=== PATIENT | female | born 1945 | race Caucasian/White ===

== ENCOUNTER 2020-08-12 10:30 | Outpatient (REF) | payer MEDICARE, SELFPAY ==
--- NOTE | ~2020-08-12 | XR_ITS ---
EXAMINATION: XR LUMBOSACRAL SPINE CLINICAL INFORMATION: Low back pain. COMPARISON: Radiographs lumbosacral spine 01/08/2019. CT chest screening 10/23/2018, 10/14/2017. TECHNIQUE: Three views of the lumbosacral spine. FINDINGS: There is normal lumbar segmentation with 5 [id number] lumbar vertebrae of normal height and normal lumbar lordosis. There is no lumbar vertebral compression, spondylolisthesis, or destructive process. Again, there are multilevel disc changes, greatest at L4-L5 and L1-L2 with disc narrowing and endplate sclerosis and vertebral spurring. Similar changes also noted at the other levels as before. There is facet degeneration greatest at L4 through S1. The SI joints and visualized sacrum are unremarkable. There are 2 calculi again seen overlying the right abdomen, 1.3 cm and 1.2 cm, respectively. These are not visible on the lateral view, therefore anterior in position and likely gallstones rather than renal calculi as previously suggested. XR/XR lumbar spine 2-3V IMPRESSION: 1. Multilevel degenerative disc and degenerative facet changes. 2. No lumbar vertebral compression, spondylolisthesis, or destructive process. 3. Probable gallstones.
--- NOTE | ~2020-08-12 | CT_ITS ---
EXAMINATION: CT CHEST SCREENING CLINICAL INFORMATION: Lung cancer screening COMPARISON: Previous chest CT scans most recent September 2018 TECHNIQUE: Multidetector volumetric CT imaging of the chest is performed without contrast using low dose technique. Additional 2D coronal and sagittal reformatted images and axial 3D maximum intensity projection (MIP) images are generated on the CT workstation. This CT examination was performed using dose optimization techniques as appropriate, variously including the following: *Automated exposure control *Adjustment of mA and/or kV according to patient size (this includes techniques or standardized protocols for targeted exams where dose is matched to indication/reason for exam; i.e. extremities or head) *Use of iterative reconstruction technique DLP: 56 mGy-cm FINDINGS: LUNGS: There are small 2 mm lateral right upper lobe nodules for example axial image 92 series 5 that are stable. There is a small peribronchial groundglass attenuation nodule in the right upper lobe axial image 182 series 5 that is stable. There are increased peripheral interstitial markings seen in the left anterior upper lobe probably related to previous chest wall radiation. There are scattered areas of mild bronchial wall thickening and bronchial soft tissue opacification. There are small cysts in the bilateral lower lobes that are stable. The lungs are otherwise clear. No endobronchial or endotracheal lesion. MEDIASTINUM: The heart does not appear enlarged. There is a small pericardial effusion that is unchanged. The thoracic aorta is normal in caliber. There is mild coronary artery calcification. There are no enlarged hilar or mediastinal lymph nodes.. PLEURA: There is no pleural effusion. No pleural mass or thickening. AXILLA: The left breast has been removed. There are surgical clips in the left axilla. No chest wall mass or enlarged axillary lymph nodes are seen. UPPER ABDOMEN: Unremarkable OSSEOUS STRUCTURES: There are degenerative changes of the spine. CT/CT lung screening IMPRESSION: Stable small pulmonary nodules. Scattered areas of mild bronchial wall thickening and soft tissue opacification suggestive of airways disease. Stable small pericardial effusion. ASSESSMENT: Lung-RADS category 2: Benign RECOMMENDATION: Annual low-dose chest CT follow-up recommended.
[2020-08-12 11:24] LABS: MANUAL DIFF FLAG NO
[2020-08-12 11:52] LABS: Basophils Absolute Auto 0.1 X10*3/uL (0.0-0.2); Basophils Percent Auto 1.4 % (0-2); Eosinophils Absolute Auto 0.2 X10*3/uL (0.0-0.4); Eosinophils Percent Auto 3.4 % (0-4); Hematocrit 41.6 % (37-47); Hemoglobin 13.3 g/dl (12.0-16.0); Imm Gran Abs Auto 0.02 X10*3/uL (0.00-0.03); Imm Gran Pct Auto 0.3 % (0.0-0.4); Lymphocytes Absolute Auto 1.7 X10*3/uL (1.2-4.9); Lymphocytes Percent Auto 25.9 % (20-40); Mean Corpuscular Volume 90.8 fL (80-98); Mean Platelet Volume 9.8 fL (9.4-12.3); Monocytes Absolute Auto 0.4 X10*3/uL (0.1-1.2); Monocytes Percent Auto 5.7 % (2-11); Neutrophils Absolute Auto 4.1 X10*3/uL (2.0-8.3); Neutrophils Percent Auto 63.3 % (45-73); Platelet Count 243 X10*3/uL (160-400); Red Blood Count 4.58 X10*6/uL (4.20-5.50); Red Cell Distribution Width 14.2 % (11.0-16.0); White Blood Count 6.5 X10*3/uL (4.8-10.8)
[2020-08-12 12:07] LABS: Thyroid Stimulating Hormone 1.15 uIU/mL (0.32-4.0)
[2020-08-12 12:09] LABS: Alanine Aminotransferase 13 U/L (0-31); Albumin Level 4.1 g/dL (3.5-5.0); Alkaline Phosphatase 58 U/L (39-117); Anion Gap 10 (12-20); Aspartate Amino Transferase 15 U/L (5-31); Bilirubin Total 0.3 mg/dL (0.0-1.0); Blood Urea Nitrogen 10 mg/dL (9-16); Calcium 9.2 mg/dL (8.4-10.2); Carbon Dioxide 29 mmol/L (22-29); Chloride 108 mmol/L (96-108); Estimated Glomerular Filt Rate > 60; Glucose Random 94 mg/dL (60-115); Potassium 4.4 mmol/L (3.3-5.1); Sodium 143 mmol/L (135-145); Total Protein 6.5 g/dL (6.5-8.0)
[2020-08-12 12:17] LABS: Erythrocyte Sedimentation Rate 8 MM/HR (0-20)
== END 2020-08-12 10:31 | disposition home or self-care (01) ==
LOC: HO.CT 10:30
PROVIDERS: Absent Provider Family Medicine; PCP Family Medicine; Visit Provider Physician Assistant Medical
DX: Z12.2 Encounter for screening for malignant neoplasm of respiratory organs (principal); F17.210 Nicotine dependence, cigarettes, uncomplicated; R53.83 Other fatigue; M54.5 Low back pain
CPT/HCPCS: 36415; 71271; 72100; 80053; 84443; 85025; 85652

== ENCOUNTER 2021-06-17 10:23 | Outpatient (REF) | payer MEDICARE, SELFPAY ==
[2021-06-17 13:25] LABS: MANUAL DIFF FLAG NO
[2021-06-17 13:34] LABS: Basophils Absolute Auto 0.1 X10*3/uL (0.0-0.2); Basophils Percent Auto 1.1 % (0-2); Eosinophils Absolute Auto 0.2 X10*3/uL (0.0-0.4); Eosinophils Percent Auto 3.7 % (0-4); Hematocrit 43.5 % (37.0-47.0); Hemoglobin 13.7 g/dl (12.0-16.0); Imm Gran Abs Auto 0.01 X10*3/uL (0.00-0.03); Imm Gran Pct Auto 0.2 % (0.0-0.4); Lymphocytes Absolute Auto 1.6 X10*3/uL (1.2-4.9); Lymphocytes Percent Auto 24.8 % (20-40); Mean Corpuscular HGB Conc 31.5 g/dl (31.0-35.0); Mean Corpuscular Hemoglobin 28.5 pg (27.0-33.0); Mean Corpuscular Volume 90.4 fL (80.0-98.0); Mean Platelet Volume 10.2 fL (9.4-12.3); Monocytes Absolute Auto 0.4 X10*3/uL (0.1-1.2); Monocytes Percent Auto 5.8 % (2-11); Neutrophils Absolute Auto 4.1 x10*3/uL (2.0-8.3); Neutrophils Percent Auto 64.4 % (45-73); Platelet Count 238 X10*3/uL (160-400); Red Blood Count 4.81 X10*6/uL (4.20-5.50); Red Cell Distribution Width 14.4 % (11.0-16.0); White Blood Count 6.4 X10*3/uL (4.8-10.8)
[2021-06-17 13:42] LABS: Alanine Aminotransferase 14 U/L (0-31); Alkaline Phosphatase 62 U/L (39-117); Anion Gap 9 (12-20); Aspartate Amino Transferase 14 U/L (5-31); Bilirubin Total 0.5 mg/dL (0.0-1.0); Blood Urea Nitrogen 13 mg/dL (9-16); Calcium 9.3 mg/dL (8.4-10.2); Carbon Dioxide 30 mmol/L (22-29); Chloride 103 mmol/L (96-108); Estimated Glomerular Filt Rate > 60; Glucose Random 88 mg/dL (60-115); Potassium 4.3 mmol/L (3.3-5.1); Sodium 138 mmol/L (135-145); Total Protein 6.8 g/dL (6.5-8.0)
== END 2021-06-17 10:24 | disposition home or self-care (01) ==
LOC: HO.10HDL 10:23
PROVIDERS: PCP Family Medicine; Visit Provider Family Medicine
DX: R53.83 Other fatigue (principal)
CPT/HCPCS: 36415; 80053; 85025

== ENCOUNTER 2021-09-02 12:55 | Outpatient (REF) | payer MEDICARE, SELFPAY ==
--- NOTE | ~2021-09-02 | CT_ITS ---
EXAMINATION: CT CHEST SCREENING CLINICAL INFORMATION: Nicotine dependence. COMPARISON: CT lungs 08/12/2020. TECHNIQUE: Multidetector volumetric CT imaging of the chest is performed without contrast using low dose technique. Additional 2D coronal and sagittal reformatted images and axial 3D maximum intensity projection (MIP) images are generated on the CT workstation. This CT examination was performed using dose optimization techniques as appropriate, variously including the following: *Automated exposure control *Adjustment of mA and/or kV according to patient size (this includes techniques or standardized protocols for targeted exams where dose is matched to indication/reason for exam; i.e. extremities or head) *Use of iterative reconstruction technique DLP: 57 mGy-cm FINDINGS: LUNGS: Lungs are well expanded without acute pneumonic process. A 2 mm peripheral-based nodule in the right upper lobe lateral axial image 13/4 and an adjacent subpleural-based linear density axial image 13/4 are stable. Small ground-glass attenuation peribronchiolar measuring 5 mm axial image 24/4, stable. No additional new nodules or ground-glass density seen. There is minimal bronchial wall thickening bilaterally but no bronchiectasis. MEDIASTINUM: The thyroid lobes are symmetric and normal. The central trachea and the bronchi are widely patent. Heart size and the great vessels are normal caliber. There is minimal anterior pericardial effusion. There is no cardiomegaly. The great vessels are normal caliber. PLEURA: There is no pleural effusion. No pleural mass or thickening. AXILLA: No lymphadenopathy. UPPER ABDOMEN: Visualized liver, spleen, pancreas and bilateral adrenal glands are unremarkable. OSSEOUS STRUCTURES: No lytic or sclerotic process is seen. There is mild ventral spondylosis. CT/CT lung screening IMPRESSION: Stable small pulmonary nodules and minimal bronchial wall thickening. Small pericardial effusion, stable. ASSESSMENT: Lung-RADS category 2: Benign. RECOMMENDATION: Low-dose annual CT chest follow up.
== END 2021-09-02 12:56 | disposition home or self-care (01) ==
LOC: HO.CT 12:55
PROVIDERS: PCP Family Medicine; Visit Provider Physician Assistant Medical
DX: Z12.2 Encounter for screening for malignant neoplasm of respiratory organs (principal); F17.210 Nicotine dependence, cigarettes, uncomplicated
CPT/HCPCS: 71271

== ENCOUNTER 2021-12-25 13:54 | Outpatient (REF) | payer MEDICARE, SELFPAY ==
[2021-12-25 14:06] LABS: MANUAL DIFF FLAG NO
[2021-12-25 14:45] LABS: Basophils Absolute Auto 0.1 X10*3/uL (0.0-0.2); Basophils Percent Auto 0.9 % (0-2); Eosinophils Absolute Auto 0.3 X10*3/uL (0.0-0.4); Eosinophils Percent Auto 3.6 % (0-4); Hematocrit 42.3 % (37.0-47.0); Hemoglobin 13.6 g/dl (12.0-16.0); Imm Gran Abs Auto 0.01 X10*3/uL (0.00-0.03); Imm Gran Pct Auto 0.1 % (0.0-0.4); Lymphocytes Absolute Auto 1.9 X10*3/uL (1.2-4.9); Lymphocytes Percent Auto 24.9 % (20-40); Mean Corpuscular HGB Conc 32.2 g/dl (31.0-35.0); Mean Corpuscular Hemoglobin 28.8 pg (27.0-33.0); Mean Corpuscular Volume 89.6 fL (80.0-98.0); Mean Platelet Volume 9.7 fL (9.4-12.3); Monocytes Absolute Auto 0.4 X10*3/uL (0.1-1.2); Monocytes Percent Auto 5.7 % (2-11); Neutrophils Absolute Auto 4.9 x10*3/uL (2.0-8.3); Neutrophils Percent Auto 64.8 % (45-73); Platelet Count 238 X10*3/uL (160-400); Red Blood Count 4.72 X10*6/uL (4.20-5.50); Red Cell Distribution Width 14.2 % (11.0-16.0); White Blood Count 7.5 X10*3/uL (4.8-10.8)
[2021-12-25 15:15] LABS: Alanine Aminotransferase 11 U/L (0-31); Anion Gap 15 (12-20); Aspartate Amino Transferase 15 U/L (5-31); Blood Urea Nitrogen 15 mg/dL (9-16); Carbon Dioxide 24 mmol/L (22-29); Chloride 108 mmol/L (96-108); Estimated Glomerular Filt Rate > 60; Potassium 4.6 mmol/L (3.3-5.1); Sodium 142 mmol/L (135-145)
== END 2021-12-25 13:55 | disposition home or self-care (01) ==
LOC: HO.LAB 13:54
PROVIDERS: PCP Family Medicine; Visit Provider Family Medicine
DX: G62.9 Polyneuropathy, unspecified (principal); R42 Dizziness and giddiness
CPT/HCPCS: 36415; 80051; 82565; 84450; 84460; 84520; 85025

== ENCOUNTER 2022-06-28 15:04 | Outpatient (REF) | payer MEDICARE, SELFPAY ==
--- NOTE | ~2022-06-28 | XR_ITS ---
EXAMINATION: XR LUMBOSACRAL SPINE CLINICAL INFORMATION: Fall on 06/10/2022. Worsening low back pain. COMPARISON: Lumbar spine 08/12/2020. TECHNIQUE: Three views of the lumbosacral spine. FINDINGS: There is maintained lumbar lordosis with loss of L1-L2, L2-L3 and L4-L5 disc heights with ventral spondylosis. The vertebral heights and alignment are normal. No aggressive lytic or sclerotic process seen. Paravertebral soft tissues are normal. There is no visible acute fracture, dislocation or lytic process seen. XR/XR lumbar spine 2-3V IMPRESSION: 1. Degenerative disc changes, L1-L2, L2-L3 and L4-L5 with ventral spondylosis. Degenerative disc changes at L2-L3 disc level are new. Ventral spondylosis is unchanged. 2. No visible acute fracture, dislocation or lytic process seen. 3. There is no lytic process.
[2022-06-28 17:03] LABS: Anion Gap 11 (12-20); Blood Urea Nitrogen 13 mg/dL (9-16); Carbon Dioxide 30 mmol/L (22-29); Chloride 106 mmol/L (96-108); Estimated Glomerular Filt Rate > 60; Potassium 4.5 mmol/L (3.3-5.1); Sodium 142 mmol/L (135-145)
[2022-06-28 17:18] LABS: Free T4 (Free Thyroxine) 0.94 ng/dL (0.71-1.85)
== END 2022-06-28 15:05 | disposition home or self-care (01) ==
LOC: HO.XRAY 15:04
PROVIDERS: Visit Provider Family Medicine
DX: I10 Essential (primary) hypertension (principal); M54.50 Low back pain, unspecified
CPT/HCPCS: 36415; 72100; 80051; 82565; 84439; 84520

== ENCOUNTER 2022-11-05 10:12 | Outpatient (REF) | payer MEDICARE, SELFPAY ==
--- NOTE | ~2022-11-05 | CT_ITS ---
EXAMINATION: CT CHEST LOW-DOSE SCREENING WITHOUT CONTRAST HISTORY: Asymptomatic patient meeting criteria for lung screening. PATIENT PACK-YEAR HISTORY: 50 Current Smoker: Yes If former smoker, years since quitting: COMPARISON: 09/02/2021 TECHNIQUE: Multidetector volumetric non-contrast CT imaging of the chest was performed using low dose screening CT technique. Axial thin section 0.625 mm reformations in soft tissue and lung windows were obtained. Sagittal and coronal reformations were obtained. Axial MIP images were also created and reviewed. RECONSTRUCTED WIDTH: 1.25 mm x 1.25 mm TOTAL EXAM DLP: 51 mGy-cm CTDIvol: 1.17 mGy FINDINGS: LUNGS: Mild centrilobular emphysema. No suspicious pulmonary nodule. No focal consolidation. Central airways are patent. PLEURA: No pleural effusion. LYMPH NODES: No bulky mediastinal, hilar or axillary lymphadenopathy. MEDIASTINUM: Great vessels are of normal caliber. Pulmonary arteries are ectatic. Moderate to large pericardial effusion. CORONARY ARTERY CALCIFICATIONS: Mild. CHEST WALL/BREASTS: Status post left mastectomy. Surgical clips in the left axilla. UPPER ABDOMEN: This study was performed without contrast and with lower than standard dose, reducing the sensitivity for detection of small lesions in the upper abdomen. OSSEOUS STRUCTURES: No destructive bone lesions. CT/CT lung screening IMPRESSION: No suspicious pulmonary nodule. Persistent moderate to large pericardial effusion. LUNG-RADS CATEGORY ASSESSMENT: 1. Negative. No nodules or definitely benign nodules. Continue annual screening with low-dose CT in 12 months. Probability of malignancy less than 1%. INCIDENTAL FINDINGS (S CATEGORY): Finding: No incidental findings. Significance category: Normal or normal variant. RECOMMENDATION: Low dose lung CT. overall in 1 year. Visual estimate of coronary calcified plaque burden: Mild. However, this exam cannot replace a dedicated cardiac CT calcium score for accurate assessment. LUNG-RADS CATEGORY: 1 -- NEGATIVE
== END 2022-11-05 10:13 | disposition home or self-care (01) ==
LOC: HO.CT 10:12
PROVIDERS: PCP Family Medicine; Visit Provider Physician Assistant Medical
DX: Z12.2 Encounter for screening for malignant neoplasm of respiratory organs (principal); F17.210 Nicotine dependence, cigarettes, uncomplicated
CPT/HCPCS: 71271

== ENCOUNTER → 2022-12-21 09:43 | Outpatient (REF) | payer MEDICARE, SELFPAY ==
--- NOTE | 2022-12-21 09:46 | CA_ITS ---
Transthoracic Echocardiogram Patient (Last, First, Middle): Belinda Davison M Gender: Female Date of : 1945 Age: 77 Procedure Date: 12/21/2022 Procedure Type: Transthoracic Echocardiogram Location: OP Height: 170.18 cm Weight: 87.09 kg BSA: 1.99 m2 Heart Rate: bpm BP: 152 / 70 mmHg Unit Secretary: Referring MD: Yonatan Woody MD Soundscriber Mechanic: Erik March MD Symptoms: PERICARDIAL EFFUSION ON CT I31.39 Study Quality: Good ECG Rhythm: Sinus Conclusions: - 1. Low normal LV ejection fraction 50-55% 2. Normal cardiac valvular Dopplers 3. Normal RV systolic pressure 4. Small pericardial effusion which appears to be circumferential without evidence of tamponade Findings Left Ventricle Normal left ventricular cavity size. There is normal left ventricular wall thickness. The left ventricular systolic function is low normal. The visually estimated ejection fraction is between 50-55%. Spectral Doppler is indicative of a normal filling pattern. Right Ventricle Normal right ventricular cavity size and systolic function. Atria Both atria are normal in size. Interatrial shunt cannot be excluded. Aortic Valve Normal aortic valve structure and function. There is no aortic valve stenosis. There is no aortic valve regurgitation. Mitral Valve Normal mitral valve structure and function. There is trace mitral valve regurgitation. There is no mitral valve stenosis. Pulmonic Valve The pulmonic valve is likely normal. There is trace pulmonic valve regurgitation. Tricuspid Valve Normal tricuspid valve structure. There is trace tricuspid valve regurgitation. The right ventricular systolic pressure is normal. The right ventricular systolic pressure is 24 mmHg. Normal right atrial pressure. There is no evidence of pulmonary hypertension. Great Vessels All visible segments of the aorta are normal in size. The pulmonary artery was not well visualized. Venous The inferior vena cava is normal in size and collapses greater than 50% with inspiration. Pericardium/Pleural There is a small circumferential pericardial effusion. There are no definitive echocardiographic findings of tamponade physiology. Prior Study Comparison No prior study available for comparison. Measurements 2D Linear Measurements IVSd: 1.02 0.6-0.9/0.6-1.0 cm LVIDd: 4.65 3.9-5.3/4.2-5.9 cm LVIDd Index: 2.34 2.4-3.2/2.2-3.1 cm/m2 LVIDs: 3.46 2.0-3.6 cm LVPWd: 1.08 0.7-1.1 cm Ao Root: 2.60 2.1-3.5 cm LA Diam: 3.10 2.7-3.8/3.0-4.0 cm LAIDs Index: 1.56 1.5-2.3 cm/m2 LV Mass: 215.28 67-162/88-224 g LV Mass Index: 108.18 43-95/49-115 g/m2 LVOT Diam: 1.90 3.0+(-)1.3 cm 2D Systolic Function EF 4C: 50.00 >55% EF 2C: 49.10 >55% Mitral Valve MV Pk E: 0.83 MV PK A: 0.71 MV Decel Time: 280.00 E/A: 1.20 E'Lateral: 7.83 E'Medial: 5.87 E/E' Med: 14.10 E/E' Lat: 10.60 PHT: 82.00 MVA PHT: 2.68 Decel Shackelford: 2.96 Aortic Valve AoV Pk Arsenio: 1.54 AoV Mn Arsenio: 1.12 AoV VTI: 0.39 AoV Pk Grad: 9.00 Aov Mn Grad: 6.00 LETICIA Cont.VTI: 1.87 LVOT LVOT Pk Arsenio: 1.10 LVOT Mn Arsenio: 0.79 LVOT VTI: 0.26 LVOT Pk Grad: 5.00 LVOT Mn Grad: 3.00 LVOT Diam: 1.90 LVOT Area: 2.84 Diastolic Function MV Pk E: 0.83 MV Pk A: 0.71 E/A: 1.20 E'Medial: 5.87 E/E' Med: 14.10 E' Laterial: 7.83 E/E' Lat: 10.60 Right Ventricle TAPSE (mm): 17.00 TVS' Arsenio: 9.00 Tricuspid Valve TR Pk Arsenio: 2.29 TR Pk Grad: 21.00 RA Press: 3.00 RVSP: 24.00 Great Vessels Aorta Ao Root-2D: 2.60 2.0-3.7 cm Ao Asc: 2.90 2.1-3.4 cm Updated in Other Vendor System with Status of Final Erik March MD electronically signed on 12/21/2022 4:58:00 PM with status of Final
== END ==
LOC: HO.CARD 09:43
PROVIDERS: PCP Family Medicine; Visit Provider Family Medicine
DX: I31.39 Other pericardial effusion (noninflammatory) (principal)
CPT/HCPCS: 93306

== ENCOUNTER → 2022-12-21 09:46 | Outpatient (BNV) | payer MEDICARE, SELFPAY | PROVIDERS: PCP Family Medicine; Visit Provider Internal Medicine Cardiovascular Disease | DX: I31.39 Other pericardial effusion (noninflammatory) (principal) | CPT/HCPCS: 93306 ==

== ENCOUNTER 2024-03-16 12:08 | Outpatient (REF) | payer MEDICARE, SELFPAY ==
--- NOTE | ~2024-03-16 | XR_ITS ---
EXAMINATION: XR KNEE, RIGHT CLINICAL INFORMATION: pain COMPARISON: None available. TECHNIQUE: Use of the right knee. FINDINGS: There is mild reduction in the patellofemoral compartment joint space with superior patellar. The medial and lateral compartment joint space is maintained normal. No bony erosive changes or loose bodies seen. No visible acute fracture or dislocation seen. The soft tissues are normal. XR/XR knee RT 3V IMPRESSION: Mild degenerative changes patellofemoral compartment with superior patellar spurring. Electronically signed by: Dameon Peterson MD 03/19/2024 10:44 AM JEANNINE
== END 2024-03-16 12:09 | disposition home or self-care (01) ==
LOC: HO.XRAY 12:08
PROVIDERS: PCP Family Medicine; Visit Provider Family Medicine
DX: M25.561 Pain in right knee (principal)
CPT/HCPCS: 73562

== ENCOUNTER → 2024-03-16 12:50 | Outpatient (BNV) | payer MEDICARE, SELFPAY | PROVIDERS: PCP Family Medicine; Visit Provider Radiology Diagnostic Radiology | DX: M25.561 Pain in right knee (principal) | CPT/HCPCS: 73562 ==

== ENCOUNTER 2024-05-02 08:16 | Outpatient (REF) | payer MEDICARE, SELFPAY ==
--- NOTE | ~2024-05-02 | XR_ITS ---
EXAMINATION: XR KNEE AP STANDING CLINICAL INFORMATION: M25.561 - Pain in right knee COMPARISON: Right knee radiographs 03/16/2024. TECHNIQUE: AP bilateral standing view of the knees was obtained. FINDINGS: Right Knee: Solitary AP view demonstrates mild joint space narrowing in the medial and lateral compartments with minimal marginal osteophytic spurring. Osteophytic lipping of the posterior lateral tibial plateau. No fracture, dislocation, or acute bone lesion. Normal alignment. Normal soft tissues. Left Knee: Solitary AP view demonstrates minimal medial and lateral compartment joint space narrowing, with minimal marginal osteophytic spurring. Normal alignment. No fracture, dislocation, or acute bone lesion. No soft tissue abnormality. XR/XR knee standing BI IMPRESSION: 1. Mild right and minimal left knee osteoarthrosis. Electronically signed by: Geoff Porter MD 05/07/2024 08:48 AM EDT
--- OUTSIDE RECORDS SUMMARY | 2024-05-02 08:39 | XMS_ITS | Clinical Summary ---
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 Active meloxicam (MOBIC) 15 mg tablet Take 1 Tablet by mouth daily. Active traZODone (DESYREL) 50 mg tablet Take 1 Tablet by mouth at bedtime. Active LORazepam (ATIVAN) 1 mg tablet Take 1 tablet (1 mg total) by mouth every 6 (six) hours if needed. Active citalopram (CeleXA) 40 mg tablet Take 1 tablet (40 mg total) by mouth 1 (one) time each day. Active lisinopriL (PRINIVIL,ZESTR IL) 10 mg tablet Take 1 tablet (10 mg total) by mouth 1 (one) time each day. Active carisoprodoL-as pirin (SOMA COMPOUND) 200-325 mg per tablet Take 1 tablet by mouth 2 (two) times a day. Active albuterol ER (VOSPIRE ER) 4 mg 12 hr tablet Take 1 tablet (4 mg total) by mouth every 12 (twelve) hours. Active CLOBETASOL PROPIONATE, BULK, MISC Apply topically. Active Active Problems Problem Noted Date Diagnosed Date History of cancer of left breast 02/17/2024 Intraductal papilloma of right breast 01/26/2023 Osteopenia due to cancer therapy 12/15/2016 Encounters Date Type Department Care Team Description 02/17/2024 10:30 AM EST Office Visit [facility] Hematology Oncology [address] [place] [address] Julia Hanley MD Intraductal papilloma of right breast (Primary Dx); History of cancer of left breast; Osteopenia due to cancer therapy from Last 3 Months Surgical History Surgery Date Site/Laterality Comments HYSTERECTOMY 1991 PROCEDURE: HISTORICAL HYSTERECTOMY OTHER SURGICAL HISTORY 2007 Left PROCEDURE: HISTORICAL COMPLETE UNILATERAL MASTECTOMY CATARACT EXTRACTION 2016 Bilateral PROCEDURE: HISTORICAL CATARACT REMOVAL MASTECTOMY 02/28/2007 - 02/28/2008 Left BREAST BIOPSY US RT 02/28/2022 - 02/27/2023 Right BREAST LUMPECTOMY Medical History Medical History Date Comments Psoriasis DX:Psoriasis Other chronic allergic conjunctivitis DX:Other chronic allergic conjunctivitis Depression DX:Depression Chest wall pain DX:Chest wall pa in Esophageal reflux DX:Esophageal reflux PAC (premature atrial contraction) DX:PAC (premature atrial contraction) Chronic fatigue DX:Chronic fatig ue History of colonic polyps 2003 DX:His tory of colonic polyps History of left breast cancer 2007 DX :History of left breast cancer Acute labyrinthitis DX:Acute lab yrinthitis COPD (chronic obstructive pu lmonary disease) ([facility]) DX:COPD (chronic obstructive pulmonary disease) ([facility]) Covid-19 10/2021 DX:COVID-19 Hand, foot and mouth disease 05/2022 DX: Hand, foot and mouth disease BPV (benign positional vertigo) 2006 DX:BPV (benign positional vertigo) Family History Medical History Relation Name Comments Breast cancer Maternal Cousin Relation Name Status Comments Maternal Cousin Alive Social History Tobacco Use Types Packs/Day Years Used Date Smoking Tobacco: Every Day Cigarettes Tobacco Cessation:Ready to Q uit: Not Asked; Counseling Given: Not Answered Alcohol Use Standard Drinks/Week Comments Not Currently 0 (1 standard drink = 0.6 oz pur e alcohol) Comments No Sex and Gender Information Value Date Recorded Sex Assigned at Not on file Legal Sex Female 1:18 PM EST Gender Identity Not on file Sexual Orientation Not on file Obstetrics History Para Term AB IAB SAB Ectopic Multiple Livin g Live Births 2 Last Filed Vital Signs Vital Sign Reading Time Taken Comments Blood Pressure 139/64 02/17/2024 10:45 AM EST Pulse 61 02/17/2024 10:45 AM EST Temperature 36.7 ??C (98.1 ??F) 02/17/2024 10:[address] Respiratory Rate - - Oxygen Saturation 98% 02/17/2024 10:45 AM EST Inhaled Oxygen Concentration - - Weight 87.6 kg (193 lb 3.2 oz) 02/17/2024 10:45 AM EST Height 170.2 cm (5' 7 ) 01/16/2024 10:27 AM EST Body Mass Index 30.26 01/16/2024 10:27 AM EST Plan of Treatment Upcoming Encounters Date Type Department Care Team (Late st Contact Info) Description 02/12/2025 11:00 AM EST Office Visit [facility] Hematology Oncology [address] [place] [address] Julia Hanley MD [address] [place] [address] Health Maintenance Due Date Last Done Comments Zoster Vaccines (1 of 2) 1964 Pneumococcal Vaccine: 50+ Years (2 of 2 - PPSV23) 05/06/2015 03/11/2015 RSV Immunization Patients 60+ Years Old (1 - 1-dose 75+ series) 2020 Cholesterol Screening (Lipid Panel) 01/26/2022 Depression Screening 01/26/2022 Falls Risk Assessment 01/26/2022 Hepatitis C Screening 01/26/2022 Lung Cancer Screening (Low Dose CT) 01/26/2022 Medicare Annual Wellness Visit 01/26/2022 Social Influencers of Health Screening 01/26/2022 COVID-19 Vaccine ( season) 2023 11/14/2021, 12/12/2020, 11/22/2020 DTaP,Tdap,and Td Vaccines (2 - Td or Tdap) 11/06/2023 11/05/2013 Hypertension/CHF/CAD Annual BMP Blood Test 01/15/2025 01/16/2024 Osteoporosis Screening (Bone Density Screening) 04/11/2028 04/11/2018 Influenza Vaccine Completed 11/04/2023, , 11/14/2021, Additional history exists HIB Vaccines Aged Out No longer eligi ble based on patient's age to complete this topic HPV Vaccines Aged Out No longer eligi ble based on patient's age to complete this topic Hepatitis A Vaccines Aged Out No long er eligible based on patient's age to complete this topic Hepatitis B Vaccines Aged Out No long er eligible based on patient's age to complete this topic IPV Vaccines Aged Out No longer eligi ble based on patient's age to complete this topic MMR Vaccines Aged Out No longer eligi ble based on patient's age to complete this topic Meningococcal ACWY Vaccine Aged Out N o longer eligible based on patient's age to complete this topic Meningococcal B Vacine Aged Out No lo nger eligible based on patient's age to complete this topic RSV Immunization Patients Under 20 months Aged Out No longer eligible based on patient's age to complete this topic Varicella Vaccines Aged Out No longer eligible based on patient's age to complete this topic Procedures Procedure Name Priority Date/Time Associated Diagnosis Comments CREATININE, SERUM Routine 01/16/2024 11: 09 AM EST Essential hypertension, malignant [facility] DEXA AXIAL SKELETON Routine 04/11/2018 10:22 AM EST Encounter for screening for osteoporosis from Last 3 Months or Most Recently Relevant to Health Maintenance Results * Creatinine (01/16/2024 11:09 AM EST) Creatinine 0.82 0.50 - 1.10 mg/dL LAB CHEMISTRY METHOD 01/16/2024 12:42 PM EST [facility] LAB eGFR 73 >=60 mL/min/1. 73m2 LAB CHEMISTRY METHOD 01/16/2024 12:42 PM EST [facility] Comment:Calculation based on the??Chronic Kidney Disease Epidemiology Collaboration (CKD-EPI) equation refit??without adjustment for race. Blood Venous blood specimen / Unknown Venipuncture / Unknown 01/16/2024 11:09 AM EST 01/16/2024 11:18 AM EST us Yonatan Woody MD LAB BLOOD ORDERABLES Final Res ult [facility] [address] [place] [address], * [facility]IAN DEXA AXIAL SKELETON (04/11/2018 10:22 AM EST) Anatomical Region Laterality Modality Mammography 04/11/2018 9:11 AM EST Narrative 04/11/2018 10:22 AM EST [facility] Diagnostic Imaging Department [address] [place] [address] Patient: ??BELINDA DAVISON ?/Age/Sex: 1945 73 - F Unit#: ??[id number] ? Location/Status: ??SPDIMAM/REG CLI ? Mnemonic/Ordering Site: ??MAMDEXAAX/SPMAM Ordering Physician: ??SAILAJA RATLIFF MD [facility] Dexa Axial Skeleton - 04/11/18948 HISTORY: ??The patient is a 73-year-old postmenopausal female with clinical concern for metabolic bone disease. FINDINGS: ??Dual energy x-ray absorptiometry of the lumbar spine and femurs is performed. The mean bone mineral density at L1-L4 is 1.229 gm/cm2 which is 105% of that of young normals and 117% of that of age matched controls. This yields a T-score of 0.5 and a Z-score of 1.5 and there is therefore no evidence of osteoporosis or osteopenia here. The mean bone mineral density of the femurs bilaterally is 0.973 gm/cm2 which is 97% of that of young normals and 112% of that of age matched controls. ??This yields a T-score of -0.3 and a Z-score of 0.8 and there is therefore no evidence of osteoporosis or osteopenia here. However, the T-score of the right femoral neck is -1.4 which is diagnostic of osteopenia. IMPRESSION: 1. Osteopenia. ??There has been an increase of 2.5% in bone mineral density in the lumbar spine since the prior examination of 02/02/2017. ??There has been an increase of 0.3% in bone mineral density in the right femur and an increase of 1.4% in bone mineral density in the left femur. 2. FRAX analysis yields a 10-year probability of major osteoporotic fracture of 10.4% and a 10-year probability of hip fracture of 2.6%. Code 84842 Dictating Physician: ??KENTRELL NEWMAN MD Electronically Signed by: ??KENTRELL NEWMAN MD Dic Date/Time: ??04/11/18 1019 Sign date/Time: ??04/11/18 1022 Procedure Note Kentrell Newman MD - 02/17/2022 [facility] Diagnostic Imaging Department [address] [place] [address] Patient: KEMHIMABELINDA D.O.B./Age/Sex: 1945 - 73 - F Unit#: [id number] Location/Status: SPDIMA/REG CLI [facility] Ordering Physician: SAILAJA RATLIFF MD [facility] Dexa Axial Skeleton - 04/11/1849 HISTORY: The patient is a 73-year-old postmenopausal female withclinical concern for metabolic bone disease. FINDINGS: Dual energy x-ray absorptiometry of the lumbar spine and femursis performed. The mean bone mineral density at L1-L4 is 1.229 gm/cm2 which is105% of that of young normals and 117% of that of age matched controls. Thisyields a T-score of 0.5 and a Z-score of 1.5 and there is therefore no evidenceof osteoporosis or osteopenia here. The mean bone mineral density of the femurs bilaterally is 0.973 gm/nl1wlacp is 97% of that of young normals and 112% of that of age matched controls.This yields a T-score of -0.3 and a Z-score of 0.8 and there is therefore noevidence of osteoporosis or osteopenia here. However, the T-score of the rightfemoral neck is -1.4 which is diagnostic of osteopenia. IMPRESSION: 1. Osteopenia. There has been an increase of 2.5% in bone mineral densityin the lumbar spine since the prior examination of 02/02/2017. There has beenan increase of 0.3% in bone mineral density in the right femur and anincrease of 1.4% in bone mineral density in the left femur. 2. FRAX analysis yields a 10-year probability of major osteoporoticfracture of 10.4% and a 10-year probability of hip fracture of 2.6%. 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
--- OUTSIDE RECORDS SUMMARY | 2024-05-02 08:39 | XMS_ITS | Clinical Summary ---
Author Organization [facility] Address [address] [place] [address] Care Team Providers Care Lotus Notes Developer Name Role Phone Yonatan Woody MD Primary Care Provider [phone] Allergies No known active allergies Medications Medication Sig Dispensed Refills Start Date End Date Status citalopram (CELEXA) 40 MG tablet Take 1 tablet (40 mg total) by mouth daily. 0 Active traZODone (DESYREL) 50 MG tablet Take 1 tablet (50 mg total) by mouth every night at bedtime. 0 Active LORazepam (ATIVAN) 1 MG tablet Take 1 tablet (1 mg total) by mouth as needed. 0 Active cholecalciferol (VITAMIN D3) 1000 UNITS tablet Take 2 tablets (2,000 Units total) by mouth daily. 0 Active Magnesium 500 MG CAPS Take 500 mg by mouth daily. 0 Active clobetasol (TEMOVATE) 0.05 % cream APPLY UTD Q 12 H PRN 5 05/12/2017 Active pregabalin (LYRICA) 25 MG capsule Take 1 capsule (25 mg total) by mouth 2 (two) times a day. 0 Active meloxicam (MOBIC) 15 MG tablet Take 1 tablet (15 mg total) by mouth daily. 0 Active lisinopril (PRINIVIL,ZESTRIL) tablet 10 mg Take 1 tablet (10 mg total) by mouth daily. 0 Active carisoprodol (Soma) 350 MG tablet Take 1 tablet (350 mg total) by mouth 4 (four) times a day as needed for muscle spasms. 0 Active ALBUTEROL IN Inhale into the lungs. 0 Active BIOTIN PO Take by mouth. 0 Active Active Problems Problem Noted Date Diagnosed Date Intraductal papilloma of right breast 01/26/2023 Malignant neoplasm of left b reast in female, estrogen receptor positive 12/15/2016 Cancer Staging:Clinical stage from 04/02/2008:Stage IIIA(T3(m), N1, M0) - Signed by Doyle Wooten MD on 12/15/2016 Multiple skin nodules 12/15/2016 Overview: Left upper anterior-axillary chest wall in radiated area adjacent to mastectomy scar Osteopenia due to cancer therapy 12/15/2016 Depression 12/15/2016 Family History Medical History Relation Name Comments Cancer Maternal Aunt Relation Name Status Comments Maternal Aunt Social History Tobacco Use Types Packs/Day Years Used Date Smoking Tobacco: Every Day Cigarettes 1.5 50 Cigars Smokeless Tobacco: Never Tobacco Cessation:Ready to Q uit: No; Counseling Given: Yes Alcohol Use Standard Drinks/Week Comments No 0 (1 standard drink = 0.6 oz pur e alcohol) Sex and Gender Information Value Date Recorded Sex Assigned at Not on file Gender Identity Not on file Sexual Orientation Not on file Job Start Date Occupation Industry Not on file Not on file Not on file Last Filed Vital Signs Vital Sign Reading Time Taken Comments Blood Pressure 148/74 01/26/2023 10:52 AM EST Pulse 82 01/26/2023 10:52 AM EST Temperature 36.8 ??C (98.2 ??F) 01/26/2023 10:[address] Respiratory Rate - - Oxygen Saturation 97% 01/26/2023 10:52 AM EST Inhaled Oxygen Concentration - - Weight 87.2 kg (192 lb 3.2 oz) 01/26/2023 10:52 AM EST Height 170.2 cm (5' 7 ) 01/04/2020 3:02 PM EST Body Mass Index 30.1 01/04/2020 3:02 PM EST Plan of Treatment Health Maintenance Due Date Last Done Comments Hepatitis C Screening 1945 Lung Cancer Screening (Low D ose CT) 1945 COVID-19 Vaccine (#1) 1950 Pneumococcal Vaccine (1 of 2 - PCV) 1951 Depression Screening 1957 Preventative Health Evaluation 1963 Tobacco Cessation Counseling 1963 DTap / Tdap / Td (1 - Tdap) 1964 Shingrix-Zoster Vaccine (1 of 2) 1964 Fall Risk Assessment 2010 Osteoporosis Screening (DEXA Scan) 2010 RSV Adult > 60+ Yrs or Pregn ant (1 - 1-dose 75+ series) 2020 Influenza Vaccine (#1) 2023 Hepatitis B Vaccines Aged Out No long er eligible based on patient's age to complete this topic RSV Ped < 20 months Aged Out No longe r eligible based on patient's age to complete this topic Care Teams Lotus Notes Developer Relationship Specialty Start Date End Date Yonatan Woody MD [address] [place] [address] [place] [address] PCP - General Internal Medicine 12/15/16
== END 2024-05-02 08:17 | disposition home or self-care (01) ==
LOC: HO.HOSX 08:16
PROVIDERS: Visit Provider Physician Assistant
DX: M25.561 Pain in right knee (principal); M25.562 Pain in left knee; M17.11 Unilateral primary osteoarthritis, right knee
CPT/HCPCS: 20610; 73565; 99202; J1010; J2003

== ENCOUNTER 2024-05-02 10:46 | Outpatient (AMB) | payer MEDICARE, SELFPAY ==
--- NOTE | 2024-05-02 10:59 | MHC.OFFVIS ---
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 Patient reports her pain came suddenly and has been present since Thanks. Denies injury. Her pain is located at the anterior and posterior aspect of knee. States at times she feels crunching. Sharp pain presents with certain activity and with driving. States numbness in her right calf in the past. She was previously seen in the past for her right knee and was prescibed a knee brace which had helped. Finds no relief with Tylenol and she is unable to take Advil. Hx of multiple knee sprains as a child from ice skating and dancing. 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 Pain has been present for over 3 months. She states the pain is located behind knee when she bends the knee to get into the bathtub. Pain with driving as the leg goes back and forth while bending. She lives alone and is independent with all her daily activities. PFSH Surgical History (Updated 05/02/24 @ 11:02 by ELLIOTT Lemons) Hx of lumpectomy Social History (Updated 05/02/24 @ 11:02 by ELLIOTT Lemons) Patient Tobacco Use Status: Current everyday Tobacco user Current occupational status: unemployed Review of Systems Const All systems reviewed & are unremarkable except as noted in HPI and below Physical Exam Vital Signs: BMI result Body Mass Index 30.4 Const General: cooperative and no acute distress Orientation/consciousness: patient oriented x3 Resp Effort & Inspection: normal respiratory effort and able to speak in complete sentences Cardio Peripheral pulses: Peripheral pulses 2+ throughout Neuro General: patient oriented x3 Extrem Other: Right knee is normal to inspection with mild tenderness over the medial joint line. She has mild lateral retropatellar tenderness present with crepitus on range of motion. Calf supple and nontender neurovascularly intact. Office Procedures AMB Joint Injection/Aspiration Joint Injection/Aspiration Primary Site: right knee Prep: site was prepped using aseptic technique, ethochloride spray was applied and injection warnings given Injected: 80 mg of, DepoMedrol, with 8 mL of, 1% plain lidocaine and in the joint Approach Used: anterolateral Procedure: The patient tolerated the procedure well and there was some relief with the local anesthesia Coding 73955 - Glenohumeral/Tronchanteric Bursa/Intraarticular Procedure code (CPT) selection complete Results Reviewed Results Reviewed: X-rays of the right knee obtained in the office today and reviewed by me show mild arthritis with patellofemoral degenerative changes. Assessment & Plan Assessment & Plan (1) Patellofemoral arthritis of right knee: Code(s): M17.11 - Unilateral primary osteoarthritis, right knee Category: Medical Plan: We discussed options which include physical therapy which she would hold off on at this time but I did give her a handout on some home exercises. We also discussed steroid injection which she did consent to move forward with. And right knee injection tolerated well. Over the next 6-8 weeks she will increase activities as tolerated and if symptoms persist or worsen she will contact our office otherwise follow up as needed. Orders: Orders XR knee standing BI Today M25.561 - Pain in right knee, M25.562 - Pain in left knee Coding Level of Care Code New Pt Level 3 (60904) Complex EM visit Add On G2211 Diagnoses Patellofemoral arthritis of right knee M17.11 CPT Codes Coding - Joint 7: 88678 - Glenohumeral/Tronchanteric Bursa/Intraarticular ([id number])
[2024-05-02 11:00] VITALS: BMI 30.4
--- OUTSIDE RECORDS SUMMARY | 2024-05-02 12:52 | XMS_ITS | Clinical Summary ---
Author Organization [facility] Address [address] [place] [address] Phone Care Team Providers Care Bearingizer Name Role Phone Yonatan Woody MD Primary Care Provider [phone] Allergies No known active allergies Medications pregabalin [...] Description 02/17/2024 10:30 AM EST Office Visit Hematology Oncology [address] [place] [address] Julia Hanley MD Intraductal papilloma [...] yrinthitis COPD (chronic obstructive pu lmonary disease) ([facility]) DX:COPD (chronic obstructive pulmonary disease) ([facility]) Covid-19 10/2021 DX:COVID-19 Hand, foot and mouth [...] Description 02/12/2025 11:00 AM EST Office Visit Hematology Oncology [address] [place] [address] Julia Hanley MD [address] [place] [address] Health Maintenance Due Date Last [...] 11: 09 AM EST Essential hypertension, malignant [facility] DEXA AXIAL SKELETON Routine 04/11/2018 10:22 AM EST Encounter for screening for osteoporosis from Last 3 Months or Most Recently Relevant to Health Maintenance Results * Creatinine (01/16/2024 11:09 AM EST) Creatinine 0.82 0.50 - 1.10 mg/dL LAB CHEMISTRY METHOD 01/16/2024 12:42 PM EST [facility] eGFR 73 >=60 mL/min/1. 73m2 LAB CHEMISTRY METHOD 01/16/2024 12:42 PM EST [facility] Comment:Calculation based on the??Chronic Kidney Disease Epidemiology Collaboration (CKD-EPI) equation refit??without adjustment for race. Blood Venous blood specimen / Unknown Venipuncture / Unknown 01/16/2024 11:09 AM EST 01/16/2024 11:18 AM EST us Yonatan Woody MD LAB BLOOD ORDERABLES Final Res ult [facility] [address] [place] [address], * WILIAN DEXA AXIAL SKELETON (04/11/2018 10:22 AM EST) Anatomical Region Laterality Modality Mammography 04/11/2018 9:11 AM EST Narrative 04/11/2018 10:22 AM EST [facility] Diagnostic Imaging Department [address] [place] [address] Patient: ??BELINDA DAVISON ?/Age/Sex: 1945 73 - F Unit#: ??[id number] ? Location/Status: ??SPDIMAM/REG CLI ? Mnemonic/Ordering Site: ??MAMDEXAAX/SPMAM Ordering Physician: ??SAILAJA RATLIFF MD [facility] Dexa Axial Skeleton - 04/11/18948 HISTORY: ??The [...] probability of hip fracture of 2.6%. Code 47457 Dictating Physician: ??KENTRELL NEWMAN MD Electronically Signed by: ??KENTRELL NEWMAN MD Dic Date/Time: ??04/11/18 1019 Sign date/Time: ??04/11/18 1022 Procedure Note Kentrell Newman MD - 02/17/2022 [facility] Diagnostic Imaging Department [address] [place] [address] Patient: KEMHIMABELINDA D.O.B./Age/Sex: 1945 - 73 - F Unit#: [id number] Location/Status: SPDIMA/REG CLI [facility] Ordering Physician: SAILAJA RATLIFF MD [facility] Dexa [...] density of the femurs bilaterally is 0.973 gm/cm9pkvif is 97% of that of young normals [...] probability of hip fracture of 2.6%. Code 78718 Dictating Physician: KENTRELL NEWMAN MD Electronically Signed by: KENTRELL NEWMAN MD Dic Date/Time: 04/11/18 1019 Sign date/Time: 04/11/18 1022 us Sailaja Ratliff MD IMG BI PROCEDURES Final Res ult from Last 3 Months or Most Recently Relevant to Health Maintenance Insurance [employer] MEDICARE Care Teams Bearingizer Relationship Specialty Start Date End Date Yonatan Woody MD [address] [place] [address] Dr [place] [id number] PCP - General Internal Medicine 12/15/16
--- OUTSIDE RECORDS SUMMARY | 2024-05-02 12:52 | XMS_ITS | Clinical Summary ---
Author Organization [facility] Address [address] [place] [address] Care Team Providers Care Electronics Computer Mechanic Name Role Phone Yonatan Woody MD Primary Care Provider Allergies No known active allergies Medications Medication [...] age to complete this topic Care Teams Electronics Computer Mechanic Relationship Specialty Start Date End Date Yonatan Woody MD [address] [place] [address] [place] [address] PCP - General Internal Medicine 12/15/16
== END 2024-05-02 11:44 | disposition home or self-care (01) ==
PROVIDERS: PCP Family Medicine; Visit Provider Physician Assistant
DX: M17.11 Unilateral primary osteoarthritis, right knee (principal)
CPT/HCPCS: 20610; 99203

== ENCOUNTER → 2024-05-02 10:47 | Outpatient (BNV) | payer MEDICARE, SELFPAY | PROVIDERS: Visit Provider Radiology Diagnostic Radiology | DX: M25.561 Pain in right knee (principal) | CPT/HCPCS: 73565 ==

== ENCOUNTER 2024-07-02 12:09 | Outpatient (REF) | payer MEDICARE, SELFPAY ==
[2024-07-02 13:09] LABS: MANUAL DIFF FLAG NO
[2024-07-02 13:30] LABS: Basophils Absolute Auto 0.1 X10*3/uL (0.0-0.2); Basophils Percent Auto 1.2 % (0-2); Eosinophils Absolute Auto 0.2 X10*3/uL (0.0-0.4); Eosinophils Percent Auto 2.8 % (0-4); Hematocrit 42.5 % (37.0-47.0); Hemoglobin 13.6 g/dl (12.0-16.0); Imm Gran Abs Auto 0.03 X10*3/uL (0.00-0.03); Imm Gran Pct Auto 0.4 % (0.0-0.4); Lymphocytes Absolute Auto 1.9 X10*3/uL (1.2-4.9); Lymphocytes Percent Auto 23.5 % (20-40); Mean Corpuscular Hemoglobin 29.2 pg (27.0-33.0); Mean Corpuscular Volume 91.2 fL (80.0-98.0); Mean Platelet Volume 9.9 fL (9.4-12.3); Monocytes Absolute Auto 0.5 X10*3/uL (0.1-1.2); Monocytes Percent Auto 5.8 % (2-11); Neutrophils Absolute Auto 5.5 x10*3/uL (2.0-8.3); Neutrophils Percent Auto 66.3 % (45-73); Platelet Count 227 X10*3/uL (160-400); Red Blood Count 4.66 X10*6/uL (4.20-5.50); Red Cell Distribution Width 14.6 % (11.0-16.0); White Blood Count 8.2 X10*3/uL (4.8-10.8)
[2024-07-02 13:43] LABS: Alanine Aminotransferase 13 U/L (0-31); Anion Gap 11 (12-20); Aspartate Amino Transferase 18 U/L (5-31); Blood Urea Nitrogen 16 mg/dL (9-16); Carbon Dioxide 28 mmol/L (22-29); Chloride 106 mmol/L (96-108); Estimated Glomerular Filt Rate > 60; Potassium 4.4 mmol/L (3.3-5.1); Sodium 141 mmol/L (135-145)
--- OUTSIDE RECORDS SUMMARY | 2024-07-02 13:43 | XMS_ITS ---
Author Organization [facility] Address [address] [place] [address] Care Team Providers Care Box Hinge And Lock Attacher Name Role Phone Bong COOPER, Yonatan Primary Care Provider Unavailab Norma Garcia Unavailable [phone] REASON FOR VISIT ORDERLIES TEACHER PPWK Entered Encounters Encounter Location Date Provider Diagnosis [facility] [address] [place] [address] 06/20/2024 Norma Polk Plan Of Treatment Next Appt Details Provider Name:Norma mayo, 08/27/2024 10:30:00 AM, [address] [facility], [place], [address], Progress Notes * GOSIAAshlee SudhaB:[birth year] (79 yo F)Acc No.[id number]:06/20/2024 Patient:?GOSIAGustavo Rosadoa :1945???Age:79 Y???Sex:Female Address:[address] [facility], [place], [address] * true * Date:? Generated for Printi ng/Faclifg/eTransmitting on:?07/02/2024 01:43 PM EDT
--- OUTSIDE RECORDS SUMMARY | 2024-07-02 13:43 | XMS_ITS | Clinical Summary ---
Author Organization [facility] Address [address] [place] [address] Care Team Providers Care Luggage Maker Name Role Phone Yonatan Woody MD Primary Care Provider [phone] Allergies No known active allergies Medications Medication [...] age to complete this topic Care Teams Luggage Maker Relationship Specialty Start Date End Date Yonatan Woody MD [address] [place] [address] [place] [address] PCP - General Internal Medicine 12/15/16
--- OUTSIDE RECORDS SUMMARY | 2024-07-02 13:43 | XMS_ITS | Patient Health Record ---
Author Organization [facility] Address [address] [place] [address] Care Team Providers Care Fowl Blood Tester Name Role Phone Yonatan Woody MD Primary Care Provider Norma Marcos Unavailable [phone] Reason For Referral No Information Social History Tobacco Use: Social History Observation Description Date Details (start date - stop date) Current Smoker NA - NA Tobacco use other than smoking: Question Answer Notes Are you an other tobacco user? No Tobacco Control (Standard) Question Answer Notes Tobacco use: Current smoker AUDIT-C (Standard) Question Answer Notes Did you have a drink containing alcohol in the p ast year? No Points 0 Interpretation Negative Encounters Encounter Location Date Provider Diagnosis [facility] [address] [place] [address] 06/20/2024 Norma Polk Plan Of Treatment Next Appt Details Provider Name:Norma mayo, 08/27/2024 10:30:00 AM, [address] [place] [address], [place], [address], Insurance Providers Payer Name Payer Address Payer Phone Subscriber Number Group Number Insured Name Patient Relationship to Insured Coverage Start Date Coverage End Date [employer] Medicare Adv-[id number] [address] [address] [place] [address] [id number] Belinda Mcneil Self - patient is the insured Medical (General) History Medical History History ICD Code Anxiety Arthritis Back,Hip,and Knee pain Cancer Depression High Blood Pressure Numbness Psoriasis/eczema Measles Mumps Chicken pox COPD Surgical History Surgery Date(Month/Year) 09/17/79,06/07/86 hysterectomy 1992 left mastectomy 2009 lumpectomy 03/24/23
[2024-07-02 14:00] LABS: Free T4 (Free Thyroxine) 0.86 ng/dL (0.71-1.85)
== END 2024-07-02 12:10 | disposition home or self-care (01) ==
LOC: HO.10HDL 12:09
PROVIDERS: Visit Provider Family Medicine
DX: I10 Essential (primary) hypertension (principal); R53.83 Other fatigue; R55 Syncope and collapse
CPT/HCPCS: 36415; 80051; 82565; 84439; 84450; 84460; 84520; 85025

== ENCOUNTER 2024-09-13 14:42 | Outpatient (AMB) | payer MEDICARE, SELFPAY ==
--- NOTE | 2024-09-13 14:51 | A.OFFVIS_ITS ---
Vital Signs 09/13/24 14:58 Height 5 ft 7 in Weight 194 lb BMI 30.4 Intake Visit Reasons: OV-Right knee pain Intake Note: Belinda is a 79 year old female who presents today for a follow up of right knee patellofemoral arthritis, last injection 05/02/24. Patient reports last injection provided her with relief and is just now tapering off. She is requesting to repeat injection today. Allergies No Known Allergies Allergy (Mild, Unverified 09/13/24 14:57) NKA Medication List - Last Reconciled 09/13/24 by Keaton Escudero PA-C albuterol sulfate 90 mcg/actuation inhalation carisoprodol 350 mg PO BID citalopram mg PO DAILY clobetasol 0.05% topical Q12H PRN lisinopril mg PO DAILY lorazepam mg PO meloxicam 15 mg PO QAM pregabalin 150 mg PO BID trazodone mg PO HPI HPI OV-Right knee pain: Details: 79-year-old female returns to the office today for a follow-up right knee pain. She had an injection approximately 4 months ago and feels that the injection was quite successful. She states over the last couple of weeks her pain has been developing with daily activities. [facility] Surgical History Hx of lumpectomy Social History Patient Tobacco Use Status: Current everyday Tobacco user Current occupational status: unemployed Review of Systems Const All systems reviewed & are unremarkable except as noted in HPI and below Physical Exam Vital Signs: BMI result Body Mass Index 30.4 Const General: cooperative and no acute distress Orientation/consciousness: patient oriented x3 Resp Effort & Inspection: normal respiratory effort and able to speak in complete sentences Cardio Peripheral pulses: Peripheral pulses 2+ throughout Neuro General: patient oriented x3 Extrem Other: Right knee is normal to inspection with mild tenderness over the medial joint line. She has mild lateral retropatellar tenderness present with crepitus on range of motion. Calf supple and nontender neurovascularly intact. Office Procedures AMB Joint Injection/Aspiration Joint Injection/Aspiration Primary Site: right knee Prep: site was prepped using aseptic technique, ethochloride spray was applied and injection warnings given Injected: 80 mg of, DepoMedrol, with 8 mL of, 1% plain lidocaine and in the joint Approach Used: anterolateral Procedure: The patient tolerated the procedure well and there was some relief with the local anesthesia Coding 53922 - Glenohumeral/Tronchanteric Bursa/Intraarticular Procedure code (CPT) selection complete Assessment & Plan Assessment & Plan (1) Patellofemoral arthritis of right knee: Code(s): M17.11 - Unilateral primary osteoarthritis, right knee Category: Medical Plan: We discussed options today which include steroid injection. She did consent to proceed with right knee steroid injection which she tolerated well. She will continue to increase activities as tolerated and if symptoms arise she will contact our office otherwise follow up as needed. Coding Level of Care Code Est Pt Level 3 (90085) Complex EM visit Add On G2211 Diagnoses Patellofemoral arthritis of right knee M17.11 CPT Codes Coding - Joint 7: 29825 - Glenohumeral/Tronchanteric Bursa/Intraarticular ([id number])
[2024-09-13 14:58] VITALS: BMI 30.4
--- OUTSIDE RECORDS SUMMARY | 2024-09-13 15:25 | XMS_ITS | Patient Health Record ---
Author Organization [facility] Address [address] [place] [address] Care Team Providers Care Cloud Infrastructure Architect Name Role Phone Bong COOPER, Yonatan Primary Care Provider Norma Marcos Unavailable [phone] Allergies No Known Allergies Reason For Referral No Information Medications Medication SIG (Take, Route, Frequency, Duration) Notes Start Date End Date Status Pregabalin Active Meloxicam Active Albuterol Active Medrol mannie 4mg as directed orally a s directed; Duration: 6 days 08/27/2024 Activ e LORazepam Active Soma Active Clobetasol Propionate Active Lisinopril Active traZODone HCl Active Citalopram & Diet Manage Prod Active Immunizations Vaccine Route Administration Date Status Comme nts Influenza Unknown 12/21/2023 Administered Social History Tobacco Use: Social History Observation Description Date Details (start date - stop date) Current Smoker NA - NA Tobacco use other than smoking: Question Answer Notes Are you an other tobacco user? No Tobacco Control (Standard) Question Answer Notes Tobacco use: Current smoker How often do you smoke cigarettes? Every day How many cigarettes a day do you smoke? 6-10 How soon after you wake up d o you smoke your first cigarette? 6-30 minutes Are you interested in quitting? Thinking about q uitting AUDIT-C (Standard) Question Answer Notes Did you have a drink containing alcohol in the p ast year? No Points 0 Interpretation Negative Problems Problem Type SNOMED Code ICD Code Onset Dates Problem Status W/U Status Risk Notes Problem Osteoarthritis of midtarsal joint of left foot (2961268732865108 ) Osteoarthritis of midtarsal joint of left foot (M19.072) Active confirmed Problem Osteoarthritis of midtarsal joint of right foot (5681543016684448 ) Osteoarthritis of midtarsal joint of right foot (M19.071) Active confirmed Vital Signs Blood pressure diastolic 70 mm Hg 08/27/2024 Height 5 ft 7 in in 08/27/2024 Blood pressure systolic 120 mm Hg 08/27/2024 Weight 184 lbs 08/27/2024 BMI 28.82 kg/m2 08/27/2024 Encounters Encounter Location Date Provider Diagnosis [address] [address] 08/27/2024 Norma Polk Pain in left foot M79.672 ; Osteoarthritis of midtarsal joint of right foot M19.071 ; Pain in left ankle and joints of left foot M25.572 ; Bursitis of left foot M77.52 ; Osteoarthritis of midtarsal joint of left foot M19.072 ; Pain in right foot M79.671 ; Pain in right ankle and joints of right foot M25.571 and Bursitis of right foot M77.[address] [address] 06/20/2024 Norma Polk Assessments Encounter Date Diagnosis (ICD Code) Assessment Notes Treatment Notes Treatment Clinical Notes Section Notes 08/27/2024 Pain in left foot (ICD-10 - M79.672) 08/27/2024 Osteoarthritis of midtarsal joint of right foot (ICD-10 - M19.071) 08/27/2024 Pain in left ankle and joints of left foot (ICD-10 - M25.572) 08/27/2024 Bursitis of left foot (ICD-10 - M77.52) 08/27/2024 Osteoarthritis of midtarsal joint of left foot (ICD-10 - M19.072) 08/27/2024 Pain in right foot (ICD-10 - M79.671) 08/27/2024 Pain in right ankle and joints of right foot (ICD-10 - M25.571) 08/27/2024 Bursitis of right foot (ICD-10 - M77.51) Plan Of Treatment Pending Test Test Name Order Date X ray : Foot, left 3V 08/27/2024 X ray : Foot, right 3V 08/27/2024 Next Appt Details Provider Name:Norma Murray Leon gael, 10/04/2024 10:15:00 AM, [address] [facility], [place], [address], Insurance Providers Payer Name Payer Address Payer Phone Subscriber Number Group Number Insured Name Patient Relationship to Insured Coverage Start Date Coverage End Date [employer] Medicare [id number] [address] [address] [place] [address] [id number] Belinda Mcneil Self - patient is the insured Medical (General) History Medical History History ICD Code Anxiety Arthritis Back,Hip,and Knee pain Cancer Depression High Blood Pressure Numbness Psoriasis/eczema Measles Mumps Chicken pox COPD Surgical History Surgery Date(Month/Year) 09/17/79,06/07/86 hysterectomy 1992 left mastectomy 2009 lumpectomy 03/24/23
--- OUTSIDE RECORDS SUMMARY | 2024-09-13 15:25 | XMS_ITS | Patient Health Record ---
Author Organization [facility] Address [address] [place] [address] Care Team Providers Care Php Developer Name Role Phone Kyle Ballard [phone] Reason For Referral No Information Plan Of Treatment No Information
--- OUTSIDE RECORDS SUMMARY | 2024-09-13 15:25 | XMS_ITS | Clinical Summary ---
Author Organization [facility] Address [address] [place] [address] Care Team Providers Care Mandarin Tutor Name Role Phone Yonatan Woody MD Primary Care Provider [phone] Allergies No known active allergies Medications Medication [...] 82 01/26/2023 10:52 AM EST Temperature 36.8 C (98.2 F) 01/26/2023 10:52 AM EST Respiratory Rate - - Oxygen Saturation 97% [...] 1-dose 75+ series) 2020 Influenza Vaccine (#1) 2024 Hepatitis B Vaccines Aged Out No long er eligible based on patient's age to complete this topic RSV Ped < 20 months Aged Out No longe r eligible based on patient's age to complete this topic Care Teams Mandarin Tutor Relationship Specialty Start Date End Date Yonatan Woody MD [address] [place] [address] [place] [address] PCP - General Internal Medicine 12/15/16
--- OUTSIDE RECORDS SUMMARY | 2024-09-13 15:26 | XMS_ITS | Clinical Summary ---
Author Organization [facility] Address [address] [place] [address] Phone Care Team Providers Care Farm Laborer Name Role Phone Yonatan Woody MD Primary Care Provider [phone] Allergies No known active allergies Medications pregabalin [...] 01/26/2023 Osteopenia due to cancer therapy 12/15/2016 Surgical History Surgery Date Site/Laterality Comments HYSTERECTOMY [...] obstructive pu lmonary disease) ([facility] V24, [facility] V28) DX:COPD (chronic o bstructive pulmonary disease) ([facility]) Covid-19 10/2021 DX:COVID-19 Hand, foot and mouth [...] 61 02/17/2024 10:45 AM EST Temperature 36.7 C (98.1 F) 02/17/2024 10:45 AM EST Respiratory Rate - - Oxygen Saturation 98% [...] Description 02/12/2025 11:00 AM EST Office Visit [facility] Hematology Oncology [address] [place] [address] Julia Hanley MD [address] [place] [address] Health Maintenance Due Date Last Done Comments Zoster Vaccines (1 of 2) 1964 Pneumococcal Vaccine: 50+ Years (2 of 2 - PPSV23) 05/06/2015 03/11/2015 RSV Immunization Adult Patients (1 - 1-dose 75+ series) 2020 Cholesterol Screening (Lipid Panel) 01/26/2022 Depression Screening 01/26/2022 Falls Risk Assessment 01/26/2022 Hepatitis C Screening 01/26/2022 Lung Cancer Screening (Low Dose CT) 01/26/2022 Medicare Annual Wellness Visit 01/26/2022 Social Influencers of Health Screening 01/26/2022 COVID-19 Vaccine (4 - season) 2023 11/14/2021, 12/12/2020, 11/22/2020 DTaP,Tdap,and Td Vaccines (2 - Td or Tdap) 11/06/2023 11/05/2013 Influenza Vaccine (#1) 2024 4, 11/17/2022, 11/14/2021, Additional history exists Hypertension/CHF/CAD Annual BMP Blood Test 01/15/2025 01/16/2024 Osteoporosis Screening (Bone Density Screening) 04/11/2028 04/11/2018 HIB Vaccines Aged Out No longer eligi [...] age to complete this topic Meningococcal B Vaccine Aged Out No l onger eligible based on patient's age to complete this topic RSV Immunization Patients Under 20 months Aged Out No longer eligible based on patient's age to complete this topic Varicella Vaccines Aged Out No longer eligible based on patient's age to complete this topic Procedures Procedure Name Priority Date/Time Associated Diagnosis Comments CREATININE, SERUM Routine 01/16/2024 11: 09 AM EST Essential hypertension, malignant [facility] DEXA AXIAL SKELETON Routine 04/11/2018 10:22 AM EST Encounter for screening for osteoporosis from Last 3 Months or Most Recently Relevant to Health Maintenance Results * Creatinine (01/16/2024 11:09 AM EST) Creatinine 0.82 0.50 - 1.10 mg/dL LAB CHEMISTRY METHOD 01/16/2024 12:42 PM EST [facility] eGFR 73 >=60 mL/min/1. 73m2 LAB CHEMISTRY METHOD 01/16/2024 12:42 PM EST [facility] Comment:Calculation based on the Chronic Kidney Disease Epidemiology Collaboration (CKD-EPI) equation refit without adjustment for race. Blood Venous blood specimen / Unknown Venipuncture / Unknown 01/16/2024 11:09 AM EST 01/16/2024 11:18 AM EST us Yonatan Woody MD LAB BLOOD ORDERABLES Final Res ult [facility] [address] [place] [address], [place] [phone] * [facility] DEXA AXIAL SKELETON (04/11/2018 10:22 AM EST) Anatomical Region Laterality Modality Mammography 04/11/2018 9:11 AM EST Narrative 04/11/2018 10:22 AM EST [facility] Diagnostic Imaging Department [address] [place] [address] Patient: BELINDA DAVISON Ruperto MccannB./Age/Sex: 1945 - 73 - F Unit#: [id number] [facility] Ordering Physician: SAILAJA RATLIFF MD [facility] Dexa Axial Skeleton - 04/11/[address]48 HISTORY: The patient is a 73-year-old postmenopausal female with clinical concern for metabolic bone disease. FINDINGS: Dual [...] 112% of that of age matched controls. This yields a T-score of -0.3 and a Z-score of 0.8 and there is therefore no evidence of osteoporosis or osteopenia here. However, the T-score of the right femoral neck is -1.4 which is diagnostic of osteopenia. IMPRESSION: 1. Osteopenia. There has been an increase of 2.5% in bone mineral density in the lumbar spine since the prior examination of 02/02/2017. There has been an increase of 0.3% in bone mineral density in the right femur and an increase of 1.4% in bone mineral density in the left femur. 2. FRAX analysis yields a 10-year probability of major osteoporotic fracture of 10.4% and a 10-year probability of hip fracture of 2.6%. Code 44556 Dictating Physician: KENTRELL NEWMAN MD Electronically Signed by: KENTRELL NEWMAN MD Dic Date/Time: 04/11/18 1019 Sign date/Time: 04/11/18 1022 Procedure Note Kentrell Newman MD - 02/17/2022 [facility] Diagnostic Imaging Department [address] [place], [place] [id number] Patient: KEMBELINDA RABAGO Ruperto MccannB./Age/Sex: 1945 73 - F Unit#: [id number] [facility] Mnemonic/Ordering Site: [facility] Ordering Physician: SAILAJA RATLIFF MD [facility] Dexa Axial Skeleton - 04/11/18948 HISTORY: The patient is a 73-year-old postmenopausal [...] density of the femurs bilaterally is 0.973 gm/ap1zipdb is 97% of that of young normals [...] probability of hip fracture of 2.6%. Code 18398 Dictating Physician: KENTRELL NEWMAN MD Electronically Signed by: KENTRELL NEWMAN MD Dic Date/Time: 04/11/18 1019 Sign date/Time: 04/11/18 1022 Sailaja Ratliff MD IMG BI PROCEDURES Final Res ult from Last 3 Months or Most Recently Relevant to Health Maintenance Insurance [facility] [employer] Care Teams Farm Laborer Relationship Specialty Start Date End Date Yonatan Woody MD [address] [place] [address] Dr [place], [place] [address] PCP - General Internal Medicine 12/15/16
== END 2024-09-13 15:46 | disposition home or self-care (01) ==
LOC: HO.HOS 14:42
PROVIDERS: Visit Provider Physician Assistant
DX: M17.11 Unilateral primary osteoarthritis, right knee (principal)
CPT/HCPCS: 20610

== ENCOUNTER → 2024-09-13 14:42 | Outpatient (BNVA) | payer MEDICARE, SELFPAY | PROVIDERS: Visit Provider Physician Assistant | DX: M17.11 Unilateral primary osteoarthritis, right knee (principal); Z79.52 Long term (current) use of systemic steroids | CPT/HCPCS: 20610; J1010; J2003 ==

== ENCOUNTER 2024-10-26 12:49 | Outpatient (AMB) | payer MEDICARE, SELFPAY ==
--- NOTE | 2024-10-26 13:01 | MHC.PC.OV ---
Vital Signs 10/26/24 13:08 Height 5 ft 7 in Weight 86.183 kg BMI 29.8 BP 140/82 H Respiration 16 Pulse 84 Pulse Source Pulse Oximeter Temp 96.9 F Temp Source Temporal Artery Scan Pulse Oximetry (%) 95 Oxygen Delivery Method Room Air Intake Visit Reasons: Routine / Dr Woody Blueprint Machine Operator Required: No Accompanied by: Self / Same As Patient Allergies No Known Allergies Allergy (Mild, Unverified 10/26/24 13:02) NKA Tobacco use date assessed: 10/26/24 Fall risk assessment: 1 Fall in past year Last assessed Fall Risk: 10/26/24 Dental Screening Dental Screen Date: 10/26/24 Did you have a dental visit in the last 12 months?: Yes Did you have a dental problem in the last 6 months where you did not have access to dental care?: No Was dental information given to patient?: No HPI HPI Comments History of Present Illness Details 79-year-old female with history of hypertension, osteoarthritis, BPPV, emphysema, venous insufficiency, GERD, major depressive disorder who is a current 1 pack per day smoker presents to the office today for management of chronic conditions and to establish care. Hypertension-lisinopril Osteoarthritis-taking Soma BID, meloxicam daily, Lyrica BID. Following with [facility] ortho and doing well with cortisone injections (x2) Major depressive disorder-citalopram, lorazepam p.r.n., trazodone COPD-albuterol as needed, 3-4 times daily Hx LCIS- L mastectomy 2008, chemo, radiation with post chemo neuropathy. Lumpectomy R breast 03/23 benign. Annual mammos and follows annually with Dr. Reeves at [facility]. On Lyrica Concerns: L hand/fingers number- entire hand/fingers ongoing several weeks. No injury. Nearly constant. Feels like neuropathy, like sand paper. Also has in feet. Also dropping things more easily. R eye- poked eye with a stick as she was trying to get safety glasses. Due for tdap Colonoscopies every 4 years. FH colon cancer. [facility] gastroenterology. ROS: General: No fevers, malaise, unintentional weight loss HEENT: No blurred vision, diplopia. No sore throat, nasal congestion, rhinorrhea, sinus pain, ear pain Cardiovascular: No chest pain, palpitations, or leg edema Respiratory: No shortness of breath, wheezing, cough GI: No abdominal pain, nausea, vomiting, diarrhea, constipation, melena, hematochezia : No dysuria, hematuria, increased urinary frequency, decreased urinary output MSK: No myalgia, back pain Neuro: No headaches, weakness, paresthesias Skin: No rashes or lesions EXAM: Constitutional - Awake and Alert, No apparent distress Eyes - PERRL Cardiovascular - S1S2, RRR, No edema Respiratory - Normal lung expansion, Normal respiratory effort, No respiratory distress, CTA bilaterally Extremities - no calf tenderness bilaterally, no swelling Skin - Warm/Dry Neurological - Alert & oriented x3 Psychological - Appropriate affect [facility] Medical History (Updated 10/26/24 @ 17:59 by BAM Ordoñez) GERD (gastroesophageal reflux disease) BPPV (benign paroxysmal positional vertigo) Venous insufficiency Major depressive disorder Osteoarthritis COPD (chronic obstructive pulmonary disease) Cigarette smoker Hypertension Surgical History Hx of lumpectomy Social History Housing: House Patient Tobacco Use Status: Current everyday Tobacco user e-Cigarette/Vaping Use: Never Used service: No Current occupational status: retired Cognitive needs: No Hearing needs: No Vision needs: Yes (Reading glasses) Questionnaire PHQ-9 Over the last 2 weeks, how often have you been bothered by any of the following problems? 1. Little interest or pleasure in doing things: more than half the days 2. Feeling down, depressed, or hopeless: several days 3. Trouble falling or staying asleep, or sleeping too much: more than half the days 4. Feeling tired or having little energy: more than half the days 5. Poor appetite or overeating: more than half the days 6. Feeling bad about yourself - or that you are a failure or have let yourself or your family down: not at all 7. Trouble concentrating on things, such as reading the newspaper or watching television: more than half the days 8. Moving or speaking so slowly that other people could have noticed. Or the opposite - being so fidgety or restless that you have been moving around a lot more than usual: not at all 9. Thoughts that you would be better off or of hurting yourself in some way: several days Total score: 12 Source: Developed by Drs. Kyle Montano, Hasmukh Betancourt and colleagues, with an educational lemuel from [employer]. Thrive Questionnaire Date Thrive assessed: 10/26/24 I am a: Patient What is your living situation today?: I have a steady place to live Within the past 12 months, did the food you bought not last and you didn't have the money to get more?: Never true Within the past 12 months, did you worry whether your food would run out before you got money to buy more?: Never true Do you have trouble paying for medicines?: No Do you have trouble getting transportation to medical appointments?: No Do you have trouble paying your heating and electricity bill?: No Do you have trouble taking care of your child, family member or friend?: No Do you have trouble with day-to-day activities such as bathing, preparing meals, shopping, managing finances, etc.?: Yes Are you currently unemployed and looking for a job?: No Are you interested in more education?: No THRIVE Score: 0 LIZZ-7 AMB Questionnaire LIZZ-7 Date LIZZ - 7 assessed: 10/26/24 Feeling nervous, anxious, or on edge: 2 = More than half the days Not being able to stop or control worryin = More than half the days Worrying too much about different things: 2 = More than half the days Trouble relaxin = More than half the days Being so restless that it is hard to sit still: 1 = Several days Becoming easily annoyed or irritable: 1 = Several days Feeling afraid as if something awful might happen: 1 = Several days Total LIZZ-7 score (0-4 normal; 5-9 mild; 10-14 moderate; 15-21 severe): 11 Source: Developed by Drs. Kyle Montano, Hasmukh Betancourt and colleagues, with an educational lemuel from [employer]. Physical exam (Primary Care) Vital Signs: Last Vital Signs Temp 96.9 F 10/26/24 13:08 Pulse 84 10/26/24 13:08 Resp 16 10/26/24 13:08 BP 140/82 H 10/26/24 13:08 Pulse Ox 95 10/26/24 13:08 Oxygen Delivery Method Room Air 10/26/24 13:08 BMI result Body Mass Index 29.8 Tobacco/Smoking Status: Tobacco use Status Tobacco use date assessed 10/26/24 10/26/24 13:12 Patient Tobacco Use Status Current everyday Tobacco 10/26/24 13:12 e-Cigarette/Vaping Use Never Used 10/26/24 13:12 PHQ-9: PHQ-9 Score PHQ-9: Total score 12 10/26/24 14:22 Thrive Assessment: Date of Thrive Assessment Date Thrive assessed 10/26/24 10/26/24 13:12 Immunizations Boostrix Tdap 2.5 Lf unit-8 mcg-5 Lf/0.5 mL intramuscular syringe Performing Provider: BAM Ordoñez Performing Location: [facility] Adult Primary Care-10 HD Administered by: BAM Ordoñez on 10/26/24 17:55 Dose Route Admin Location Dispensed Lot Number Expiration Date [facility] Sewing Trimmer 0.5 mL IM Left Deltoid 0.5 mL [id number] 03/24/26 [id number] [employer] Total Dispensed Waste 0.5 mL 0 % VIS Given Date VIS Provided VIS Publication Date 10/26/24 Single Vaccine 20 Eligibility Eligibility Date Funding Source Not [facility] Eligible 10/26/24 Private Coding Level of Care Code New Pt Level 4 (76915) Complex EM visit Add On G2211 Diagnoses Hypertension I10 Cigarette smoker F17.210 COPD (chronic obstructive pulmonary disease) J44.9 Osteoarthritis M19.90 GERD (gastroesophageal reflux disease) K21.9 Left hand paresthesia R20.2 Eye injury S05.90XA Assessment & Plan Assessment & Plan (1) Hypertension: Code(s): I10 - Essential (primary) hypertension Category: Medical Plan: Controlled on recheck. Continue current therapies (2) Cigarette smoker: Code(s): F17.210 - Nicotine dependence, cigarettes, uncomplicated Category: Medical Plan: Counseled on cessation, not interested in quitting at this time. (3) COPD (chronic obstructive pulmonary disease): Code(s): J44.9 - Chronic obstructive pulmonary disease, unspecified Category: Medical Plan: Stable. Albuterol as needed. Declines lung cancer screening (4) Osteoarthritis: Code(s): M19.90 - Unspecified osteoarthritis, unspecified site Category: Medical Plan: Stable. Continue current therapies (5) GERD (gastroesophageal reflux disease): Code(s): K21.9 - Gastro-esophageal reflux disease without esophagitis Category: Medical Plan: Stable. (6) Left hand paresthesia: Code(s): R20.2 - Paresthesia of skin Category: Medical Plan: X-ray of the hand ordered. Possibly radicular. Continue Lyrica. Would like to discuss plan further at upcoming visit rather than further intervention at this time (7) Eye injury: Code(s): S05.90XA - Unspecified injury of unspecified eye and orbit, initial encounter Category: Medical Plan: Recommend fluorescein stain which can not be done in the office. Given prescription for Polytrim. Tdap updated Plan Follow-up in the office in 4 months with last completed several days prior to visit Orders: Orders Hemoglobin A1c 4 Months F17.210 - Nicotine dependence, cigarettes, uncomplicated, I10 - Essential (primary) hypertension, J44.9 - Chronic obstructive pulmonary disease, unspecified, K21.9 - Gastro-esophageal reflux disease without esophagitis Lipid Panel 4 Months F17.210 - Nicotine dependence, cigarettes, uncomplicated, I10 - Essential (primary) hypertension, J44.9 - Chronic obstructive pulmonary disease, unspecified, K21.9 - Gastro-esophageal reflux disease without esophagitis XR hand LT min 3V Today M79.642 - Pain in left hand, R20.2 - Paresthesia of skin Basic Metabolic Panel 4 Months F17.210 - Nicotine dependence, cigarettes, uncomplicated, I10 - Essential (primary) hypertension, J44.9 - Chronic obstructive pulmonary disease, unspecified, K21.9 - Gastro-esophageal reflux disease without esophagitis Liver Panel 4 Months F17.210 - Nicotine dependence, cigarettes, uncomplicated, I10 - Essential (primary) hypertension, J44.9 - Chronic obstructive pulmonary disease, unspecified, K21.9 - Gastro-esophageal reflux disease without esophagitis TDaP Immunization Today Z23 - Encounter for immunization Medications: New fluticasone furoate-vilanterol 100-25 mcg/dose (Breo Ellipta) 1 inh inhalation DAILY 60 ea 0RF polymyxin B sulf-trimethoprim 10,000 unit- 1 mg/mL while awake; do not exceed 6 doses in 24 hours 1 drp ophthalmic-Right Q3H 10 mL 0RF 7 days Changed From lorazepam PO To lorazepam 1 mg PO DAILY 30 tabs 0RF
[2024-10-26 13:08] VITALS: BP 140/82; PULSE 84; RESP 16; TEMP 36.1; O2SAT 95; BMI 29.8
--- OUTSIDE RECORDS SUMMARY | 2024-10-26 13:16 | XMS_ITS | Patient Health Record ---
Author Organization [facility] etta [place] Address [address] [place] [address] Care Team Providers Care Crew Caller Name Role Phone Tamanna Teixeira Primary Care Provider Norma Salazar Unavailable [phone] Allergies No Known Allergies Reason For Referral No Information Medications Medication SIG (Take, Route, Frequency, Duration) Notes Start Date End Date Status Medrol mannie 4mg as directed orally a s directed; Duration: 6 days 08/27/2024 Activ e Pregabalin Active Meloxicam Active Soma Active traZODone HCl Active Albuterol Active Clobetasol Propionate Active Citalopram & Diet Manage Prod Active LORazepam Active Lisinopril Active Immunizations Vaccine Route Administration Date Status Comme nts Influenza Unknown 11/09/2023 Administered Influenza Unknown 12/21/2023 Administered Social History Tobacco [...] interested in quitting? Thinking about q uitting Additional Findings: Tobacco user Light cigarett e smoker (1-9 cigs/day) AUDIT-C (Standard) Question Answer Notes Did you have a drink containing alcohol in the p ast year? No Points 0 Interpretation Negative Problems Problem Type SNOMED Code ICD Code Onset Dates Problem Status W/U Status Risk Notes Problem Osteoarthritis of midtarsal joint of left foot (0507284043107530 ) Osteoarthritis of midtarsal joint of left foot (M19.072) Active confirmed Problem Osteoarthritis of midtarsal joint of right foot (4485515951055029 ) Osteoarthritis of midtarsal joint of right foot (M19.071) Active confirmed Vital Signs Heart Rate 74 /min 10/04/2024 Blood pressure diastolic 77 R mm Hg 10/04/2024 Height 5 ft 7 in in 10/04/2024 Blood pressure systolic 132 mm Hg 10/04/2024 Weight 186 lbs 10/04/2024 BMI 29.13 kg/m2 10/04/2024 Encounters Encounter Location Date Provider Diagnosis [address] [address] 08/27/2024 Norma Polk Pain in left foot [...] M25.571 and Bursitis of right foot M77.[address] [address] 10/04/2024 Norma Polk Osteoarthritis of midtarsal joint of right foot M19.071 ; Osteoarthritis of midtarsal joint of left foot M19.072 and Tinea unguium B35.1 [facility] [address] [place] [address] 06/20/2024 Norma Polk Assessments Encounter Date Diagnosis (ICD Code) Assessment Notes Treatment Notes Treatment Clinical Notes Section Notes 08/27/2024 Pain in left foot (ICD-10 - M79.672) 08/27/2024 Osteoarthritis of midtarsal joint of right foot (ICD-10 - M19.071) 10/04/2024 Osteoarthritis of midtarsal joint of left foot (ICD-10 - M19.072) 10/04/2024 Osteoarthritis of midtarsal joint of right foot (ICD-10 - M19.071) 10/04/2024 Tinea unguium (ICD-10 - B35.1) 08/27/2024 Pain in left ankle and joints [...] X ray : Foot, right 3V 08/27/2024 Insurance Providers Payer Name Payer Address Payer Phone Subscriber Number Group Number Insured Name Patient Relationship to Insured Coverage Start Date Coverage End Date [employer] Medicare [id number] [address] [address] [place] [address] [id number] Belinda Mcneil Self - patient is the insured Medical (General) History Medical History History ICD Code Anxiety Arthritis Back,Hip,and Knee pain Cancer Depression High Blood Pressure Numbness Psoriasis/eczema Measles Mumps Chicken pox COPD Surgical History Surgery Date(Month/Year) 09/17/79,06/07/86 hysterectomy 1992 left mastectomy 2009 lumpectomy 03/24/23
--- OUTSIDE RECORDS SUMMARY | 2024-10-26 13:16 | XMS_ITS | Patient Health Record ---
Author Organization [facility] Address [address] [place] [address] Care Team Providers Care School Athletic Director Name Role Phone Kyle Ballard [phone] Reason For Referral No Information Plan Of Treatment No Information
--- OUTSIDE RECORDS SUMMARY | 2024-10-26 13:17 | XMS_ITS | Clinical Summary ---
Author Organization [facility] Address [address] [place] [address] Care Team Providers Care Electric Welder Name Role Phone Yonatan Woody MD Primary Care Provider [phone] Allergies No known active allergies Medications Medication [...] age to complete this topic Care Teams Electric Welder Relationship Specialty Start Date End Date Yonatan Woody MD [address] [place] [address] [place] [address] PCP - General Internal Medicine 12/15/16
--- OUTSIDE RECORDS SUMMARY | 2024-10-26 13:17 | XMS_ITS | Clinical Summary ---
Author Organization [facility] Address [address] [place] [address] Phone Care Team Providers Care Cotton Sampler Name Role Phone Yonatan Woody MD Primary Care Provider [phone] Allergies No known active allergies Medications pregabalin [...] yrinthitis COPD (chronic obstructive pu lmonary disease) ([facility] V24, [facility] V28) DX:COPD (chronic o bstructive pulmonary disease) ([facility]) Covid-19 10/2021 [...] Description 02/12/2025 11:00 AM EST Office Visit [facility] Hematology Oncology [address] [place] [address] Julia Hanley MD [address] [place] [address] Health Maintenance Due Date Last Done Comments Zoster Vaccines (1 of 2) 1964 Pneumococcal Vaccine: 50+ Years (2 of 2 - PPSV23) 05/06/2015 03/11/2015 RSV Immunization Adult Patients (1 - 1-dose 75+ series) 2020 Cholesterol Screening (Lipid Panel) 01/26/2022 Falls Risk Assessment 01/26/2022 Hepatitis C Screening 01/26/2022 Lung Cancer Screening (Low Dose CT) 01/26/2022 Medicare Annual Wellness Visit 01/26/2022 Social Influencers of Health Screening 01/26/2022 COVID-19 Vaccine ( - season) 2023 11/14/2021, 12/12/2020, 11/22/2020 DTaP,Tdap,and Td Vaccines (2 - Td or Tdap) 11/06/2023 11/05/2013 Depression Screening 02/29/2024 Influenza Vaccine (#1) 2024 4, 11/17/2022, 11/14/2021, [...] 11: 09 AM EST Essential hypertension, malignant [facility] DEXA AXIAL SKELETON Routine 04/11/2018 10:22 AM EST Encounter for screening for osteoporosis from Last 3 Months or Most Recently Relevant to Health Maintenance Results * Creatinine (01/16/2024 11:09 AM EST) Creatinine 0.82 0.50 - 1.10 mg/dL LAB CHEMISTRY METHOD 01/16/2024 12:42 PM EST [facility] eGFR 73 >=60 mL/min/1. 73m2 LAB CHEMISTRY METHOD 01/16/2024 12:42 PM EST [facility] Comment:Calculation based on the Chronic Kidney Disease Epidemiology Collaboration (CKD-EPI) equation refit without adjustment for race. Blood Venous blood specimen / Unknown Venipuncture / Unknown 01/16/2024 11:09 AM EST 01/16/2024 11:18 AM EST us Yonatan Woody MD LAB BLOOD ORDERABLES Final Res ult [facility] [address] [place] [address], [place] [phone] * [facility] DEXA AXIAL SKELETON (04/11/2018 10:22 AM EST) Anatomical Region Laterality Modality Mammography 04/11/2018 9:11 AM EST Narrative 04/11/2018 10:22 AM EST [facility] Diagnostic Imaging Department [address] [place] [address] Patient: BELINDA DAVISON Ruperto MccannB./Age/Sex: 1945 - 73 - F Unit#: [id number] [facility] Ordering Physician: SAILAJA RATLIFF MD [facility] Dexa Axial Skeleton - 04/11/18948 HISTORY: [...] probability of hip fracture of 2.6%. Code 56725 Dictating Physician: KENTRELL NEWMAN MD Electronically Signed by: KENTRELL NEWMAN MD Dic Date/Time: 04/11/18 1019 Sign date/Time: 04/11/18 1022 Procedure Note Kentrell Newman MD - 02/17/2022 [facility] Diagnostic Imaging Department [address] [place], [place] [id number] Patient: KEMBELINDA RABAGO Ruperto MccannB./Age/Sex: 1945 73 - F Unit#: [id number] Location/Status: [facility] Mnemonic/Ordering Site: [facility] Ordering Physician: SAILAJA RATLIFF MD [facility] Dex[facility] [...] density of the femurs bilaterally is 0.973 gm/iy2lolaj is 97% of that of young normals [...] probability of hip fracture of 2.6%. Code 82350 Dictating Physician: KENTRELL NEWMAN MD Electronically Signed by: KENTRELL NEWMAN MD Dic Date/Time: 04/11/18 1019 Sign date/Time: 04/11/18 1022 Sailaja Ratliff MD IMG BI PROCEDURES Final Res ult from Last 3 Months or Most Recently Relevant to Health Maintenance Insurance [facility] MEDICARE Care Teams Cotton Sampler Relationship Specialty Start Date End Date Yonatan Woody MD [address] [place] [address] Dr [place], [place] [address] PCP - General Internal Medicine 12/15/16
== END 2024-10-26 13:39 | disposition home or self-care (01) ==
LOC: HO.HMCHD 12:49
PROVIDERS: PCP Student in an Organized Health Care Education/Training Program; Visit Provider Physician Assistant
DX: I10 Essential (primary) hypertension (principal); F17.210 Nicotine dependence, cigarettes, uncomplicated; J44.9 Chronic obstructive pulmonary disease, unspecified; M19.90 Unspecified osteoarthritis, unspecified site; K21.9 Gastro-esophageal reflux disease without esophagitis; R20.2 Paresthesia of skin; S05.90XA Unspecified injury of unspecified eye and orbit, initial encounter; Z23 Encounter for immunization

== ENCOUNTER → 2024-10-26 12:49 | Outpatient (BNVA) | payer MEDICARE, SELFPAY | PROVIDERS: PCP Student in an Organized Health Care Education/Training Program; Visit Provider Physician Assistant | DX: I10 Essential (primary) hypertension (principal); Z23 Encounter for immunization; J44.9 Chronic obstructive pulmonary disease, unspecified; M19.90 Unspecified osteoarthritis, unspecified site; K21.9 Gastro-esophageal reflux disease without esophagitis; R20.2 Paresthesia of skin; S05.91XA Unspecified injury of right eye and orbit, initial encounter; F32.9 Major depressive disorder, single episode, unspecified; F17.210 Nicotine dependence, cigarettes, uncomplicated; Z86.000 Personal history of in-situ neoplasm of breast; Z79.899 Other long term (current) drug therapy; X58.XXXA Exposure to other specified factors, initial encounter; Y93.9 Activity, unspecified; Y92.9 Unspecified place or not applicable; Y99.9 Unspecified external cause status; Z13.39 Encounter for screening examination for other mental health and behavioral disorders; Z13.30 Encounter for screening examination for mental health and behavioral disorders, unspecified | CPT/HCPCS: 90471; 90715; 96127; 99202 ==

== ENCOUNTER 2025-02-18 12:41 | Outpatient (AMB) | payer MEDICARE, SELFPAY ==
--- NOTE | 2025-02-18 13:03 | A.OFFPC_ITS ---
Vital Signs 02/18/25 13:23 Height 5 ft 7 in Weight 85.842 kg BMI 29.6 BP 142/70 H Pulse 72 Pulse Source Pulse Oximeter Temp 97.4 F Temp Source Temporal Artery Scan Pulse Oximetry (%) 94 Oxygen Delivery Method Room Air Intake Visit Reasons: follow up Laundry Route Driver Required: No Accompanied by: Self / Same As Patient Allergies No Known Allergies Allergy (Mild, Unverified 02/18/25 13:04) NKA Medication List - Last Reconciled 02/18/25 by BAM Ordoñez acetaminophen (Tylenol Extra Strength) 500 mg PO Q6H PRN albuterol sulfate 90 mcg/actuation inhalation carisoprodol 350 mg PO BID cholecalciferol (vitamin D3) 25 mcg PO DAILY citalopram mg PO DAILY clobetasol 0.05% 1 appl topical Q12H PRN fluticasone furoate-vilanterol 100-25 mcg/dose (Breo Ellipta) 1 inh PO DAILY lisinopril mg PO DAILY lorazepam 1 mg PO DAILY magnesium 250 mg PO DAILY meloxicam 15 mg PO QAM polymyxin B sulf-trimethoprim 10,000 unit- 1 mg/mL 1 drp ophthalmic-Right Q3H 7 days pregabalin 150 mg PO BID trazodone mg PO Tobacco use date assessed: 10/26/24 Dental Screening Dental Screen Date: 10/26/24 HPI HPI Comments History of Present Illness Details 79-year-old female with history of hyper tension, osteoarthritis, BPPV, emphysema, venous insufficiency, GERD, major depressive disorder who is a current 1 pack per day smoker presents to the office today for management of chronic conditions Hypertension-lisinopril Osteoarthritis-taking Soma BID, meloxicam daily, Lyrica BID. Following with [facility] ortho and doing well with cortisone injections (x2) Major depressive disorder-citalopram, lorazepam p.r.n., trazodone COPD-albuterol as needed, 3-4 times daily Hx LCIS- L mastectomy 2008, chemo, radiation with post chemo neuropathy. Lumpectomy R breast 03/23 benign. Annual mammos and follows annually with Dr. Reeves at [facility]. On Lyrica. Requesting to follow in the office for breast exams following normal mammograms Concerns: Psoriasis-requesting refill of clobetasol. Has not followed with Dermatology and 15 years Acute pain of the cervical spine-occurred while opening her car door. Rates as a 2/10. Nonradiating. Described as a soreness Experiencing areas of tingling in warmth in various areas of the head. On the left side, has been experiencing 2/10 symptoms ongoing for about a year. More recently began experiencing this in the right frontal area as well as the occipital scalp. Last for several minutes before resolving. Denies any phonophobia or photophobia. No nausea or vomiting. No weakness, paresthesias, lightheadedness Health maintenance: Colonoscopies every 4 years. colon cancer. [facility] gastroenterology. Mammograms-[facility] ROS: See HPI EXAM: Constitutional - Awake and Alert, No apparent distress Eyes - PERRL Cardiovascular - S1S2, RRR, No edema Respiratory - Normal lung expansion, Normal respiratory effort, No respiratory distress, CTA bilaterally Breast-s/p left mastectomy. Right breast without any palpable masses or visible abnormality. No skin abnormalities including dimpling or peau de orange. No nipple inversion or drainage Extremities - no calf tenderness bilaterally, no swelling MSK-tenderness to palpation over the cervical spine at the level of about C6-C7. Full range of motion. 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 Psoriasis GERD (gastroesophageal reflux disease) BPPV (benign paroxysmal positional vertigo) Venous insufficiency Major depressive disorder Osteoarthritis COPD (chronic obstructive pulmonary disease) Cigarette smoker Hypertension Surgical History Hx of lumpectomy Social History Housing: House Patient Tobacco Use Status: Current everyday Tobacco user e-Cigarette/Vaping Use: Never Used service: No Current occupational status: retired Cognitive needs: No Hearing needs: No Vision needs: Yes (Reading glasses) Questionnaire Thrive Questionnaire Date Thrive assessed: 07/28/24 I am a: Patient What is your living situation today?: I have a steady place to live Within the past 12 months, did the food you bought not last and you didn't have the money to get more?: Never true Within the past 12 months, did you worry whether your food would run out before you got money to buy more?: Never true Do you have trouble paying for medicines?: No Do you have trouble getting transportation to medical appointments?: No Do you have trouble paying your heating and electricity bill?: No Do you have trouble taking care of your child, family member or friend?: No Do you have trouble with day-to-day activities such as bathing, preparing meals, shopping, managing finances, etc.?: Yes Are you currently unemployed and looking for a job?: No Are you interested in more education?: No THRIVE Score: 0 LIZZ-7 AMB Questionnaire LIZZ-7 Date LIZZ - 7 assessed: 10/26/24 Source: Developed by Drs. Kyle Montano, Karla Zavala, Hasmukh Rubio and colleagues, with an educational lemuel from [employer]. Physical exam (Primary Care) Vital Signs: Last Vital Signs Temp 97.4 F 02/18/25 13:23 Pulse 72 02/18/25 13:23 BP 142/70 H 02/18/25 13:23 Pulse Ox 94 02/18/25 13:23 Oxygen Delivery Method Room Air 02/18/25 13:23 BMI result Body Mass Index 29.6 Tobacco/Smoking Status: Tobacco use Status Tobacco use date assessed 10/26/24 02/18/25 13:05 Patient Tobacco Use Status Current everyday Tobacco 02/18/25 13:05 e-Cigarette/Vaping Use Never Used 02/18/25 13:05 Thrive Assessment: Date of Thrive Assessment Date Thrive assessed 07/28/24 02/18/25 13:05 Coding Level of Care Code Est Pt Level 4 (05851) Add On Problem Visit Only Diagnoses Hypertension I10 GERD (gastroesophageal reflux disease) K21.9 Occipital pain R51.9 COPD (chronic obstructive pulmonary disease) J44.9 Neck pain M54.2 Lobular carcinoma in situ (LCIS) of left breast D05.02 Psoriasis L40.9 Assessment & Plan Assessment & Plan (1) Hypertension: Code(s): I10 - Essential (primary) hypertension Category: Medical Plan: Controlled. Continue current therapies (2) GERD (gastroesophageal reflux disease): Code(s): K21.9 - Gastro-esophageal reflux disease without esophagitis Category: Medical Plan: Stable. Continue avoidance of triggering foods (3) Occipital pain: Code(s): R51.9 - Headache, unspecified Category: Medical Plan: Etiology unclear. She does have neck pain, possibly component of occipital neuralgia. However does not have severe pain. Referring to neurology for further evaluation and management (4) COPD (chronic obstructive pulmonary disease): Code(s): J44.9 - Chronic obstructive pulmonary disease, unspecified Category: Medical Plan: Controlled. Continue Breo Ellipta and albuterol as needed (5) Neck pain: Code(s): M54.2 - Cervicalgia Category: Medical Plan: X-ray of the cervical spine ordered. Can continue medications as prescribed. Topical analgesics recommended. 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 Continue following with Oncology. Breast exam in the office today without any abnormality (7) Psoriasis: Code(s): L40.9 - Psoriasis, unspecified Category: Medical Plan: Continue clobetasol Plan Follow-up in the office in 4 months Orders: Orders XR cervical spine 3V Today G89.29 - Other chronic pain, M54.2 - Cervicalgia Referrals Neurology Referral R51.9 - Headache, unspecified Medications: Changed From clobetasol 0.05% topical Q12H PRN L40.9 - Psoriasis, unspecified To clobetasol 0.05% 1 appl topical Q12H PRN 45 grams 5RF rash/itch L40.9 - Psoriasis, unspecified
[2025-02-18 13:23] VITALS: BP 142/70; PULSE 72; TEMP 36.3; O2SAT 94; BMI 29.6
--- OUTSIDE RECORDS SUMMARY | 2025-02-18 15:50 | XMS_ITS | Clinical Summary ---
Author Organization [facility] Address [address] [place] [address] Phone Care Team Providers Care Tiller Man Name Role Phone Tamanna Nieves Primary Care Provider [phone] Allergies No known active allergies Medications pregabalin [...] CLOBETASOL PROPIONATE, BULK, MISC Apply topically. Active Breo Ellipta 100-25 mcg/dose inhaler 02/03/2025 Active Active Problems Problem Noted Date Diagnosed Date History of cancer of left breast 02/17/2024 Intraductal papilloma of right breast 01/26/2023 Osteopenia due to cancer therapy 12/15/2016 Encounters Date Type Department Care Team Description 02/12/2025 11:00 AM EST Office Visit [facility] Hematology Oncology [address] [place] [phone] Julia Blanco MD History of cancer of left breast (Primary Dx); Intraductal papilloma of right breast; Osteopenia due to cancer therapy; Breast cancer screening by mammogram 01/17/2025 10:11 AM EST - 01/17/2025 11:59 PM EST [facility] [address] [address] History of cancer of left breast; Encounter for screening mammogram for malignant neoplasm of breast Discharge Disposition: Home or Self Care from Last 3 Months Surgical History Surgery [...] yrinthitis COPD (chronic obstructive pu lmonary disease) ([facility] V24, [facility] V28) DX:COPD (chronic o bstructive pulmonary disease) ([facility]) Covid-19 10/2021 [...] Sign Reading Time Taken Comments Blood Pressure 149/86 02/12/2025 11:12 AM EST Pulse 74 02/12/2025 11:12 AM EST Temperature 36.4 C (97.5 F) 02/12/2025 11:12 AM EST Respiratory Rate - - Oxygen Saturation 96% 02/12/2025 11:12 AM EST Inhaled Oxygen Concentration - - Weight 85.3 kg (188 lb) 02/12/2025 11:12 AM EST Height 170.2 cm (5' 7 ) 02/12/2025 11:12 AM EST Body Mass Index 29.44 02/12/2025 11:12 AM EST Plan of Treatment Health Maintenance Due Date Last Done Comments Drug Screen 1945 Non-Opioid Controlled Substance Agreement 1945 Zoster Vaccines (1 of 2) 1964 Pneumococcal Vaccine: 50+ Years (2 of 2 - PPSV23, PCV20, or PCV21) 05/06/2015 03/11/2015 RSV Immunization Adult Patients (1 - 1-dose 75+ series) 2020 Cholesterol Screening (Lipid Panel) 01/26/2022 Falls Risk Assessment 01/26/2022 Hepatitis C Screening 01/26/2022 Lung Cancer Screening (Low Dose CT) 01/26/2022 Medicare Annual Wellness Visit 01/26/2022 Social Influencers of Health Screening 01/26/2022 Depression Screening 02/29/2024 COVID-19 Vaccine ( season) 2024 11/14/2021, 12/12/2020, 11/22/2020, Additional history exists Osteoporosis Screening (Bone Density Screening) 04/11/2028 04/11/2018 DTaP,Tdap,and Td Vaccines (3 - Td or Tdap) 10/26/2034 10/26/2024, 11/05/2013 Influenza Vaccine Completed 10/27/2024, , 11/17/2022, Additional history exists HIB Vaccines Aged Out [...] Procedure Name Priority Date/Time Associated Diagnosis Comments MG MAMMO DIGITAL SCREENING W ASHVIN RIGHT Routine 01/17/2025 10:36 AM EST History of cancer of left breast Encounter for screening mammogram for malignant neoplasm of breast [facility] DEXA AXIAL SKELETON Routine 04/11/2018 10:22 AM EST Encounter for screening for osteoporosis from Last 3 Months or Most Recently Relevant to Health Maintenance Results * MG Mammo Digital Screening w Ashvin Right (01/17/2025 10:36 AM EST) Anatomical Region Laterality Modality Breast Right Mammography 01/17/2025 10:4 7 AM EST Impressions 01/17/2025 1:37 PM EST No mammographic evidence of malignancy. No suspicious interval change. A negative mammogram in the presence of a clinically suspicious palpable abnormality does not preclude the possibility of malignancy or alter the indications for biopsy. ASSESSMENT: BI-RADS 2: BENIGN RECOMMENDATION(S): 1: Routine screening mammogram RIGHT in 1 year. [facility] [address], [address] -------- FINAL REPORT -------- Dictated By: Greg Oconnell Dictated Date: 01/17/2025 10:47 ET Assigned Physician: Greg Oconnell Reviewed and Electronically Signed By: Greg Oconnell Signed Date: 01/17/2025 13:37 ET Workstation ID: [id number] Transcribed By: Self Edit Transcribed Date: 01/17/2025 10:47 ET Narrative 01/17/2025 1:37 PM EST EXAM: SCREENING MAMMOGRAPHY, UNILATERAL RIGHT HISTORY: SCREENING. Right breast surgery for reportedly benign process in the 1 o'clock position. Left mastectomy 2007. Personal history of left breast cancer. COMPARISON: Right mammography 01/16/24, 03/24/23, 03/23/23, 01/17/23, 01/12/23, 01/08/22, 12/30/20, 12/26/20 TECHNIQUE: Synthesized views of the right breast in the CC and MLO projections. Tomosynthesis of the right breast in the CC and MLO projections. ADDITIONAL IMAGING: None Computer-aided detection was employed with the Twelve AI 3-D. TISSUE DENSITY: There are scattered areas of fibroglandular density. (BI-RADS category B) FINDINGS: RIGHT BREAST: No new suspicious mass. No suspicious calcification. No new area of distortion. Unchanged circumscribed 1.3 cm oval equal density mass in the 10 o'clock position. Findings consistent with surgery in the right retroareolar region. No additional suspicious right breast findings Procedure Note Greg Oconnell MD - 01/17/2025 EXAM: SCREENING MAMMOGRAPHY, UNILATERAL RIGHT HISTORY: SCREENING. Right breast surgery for reportedly benign processin the 1 o'clock position. Left mastectomy 2007. Personal history ofleft breast cancer. COMPARISON: Right mammography 01/16/24, 03/24/23, 03/23/23, 01/17/23,01/12/23, 01/08/22, 12/30/20, 12/26/20 TECHNIQUE: Synthesized views of the right breast in the CC and MLOprojections. Tomosynthesis of the right breast in the CC and MLOprojections. ADDITIONAL IMAGING: None Computer-aided detection was employed with the iCAD ProFound AI 3-D. TISSUE DENSITY: There are scattered areas of fibroglandular density.(BI-RADS category B) FINDINGS: RIGHT BREAST: No new suspicious mass. No suspicious calcification. No new area ofdistortion. Unchanged circumscribed 1.3 cm oval equal density mass in the 10 o'clockposition. Findings consistent with surgery in the right retroareolarregion. No additional suspicious right breast findings IMPRESSION: No mammographic evidence of malignancy. No suspicious interval change. A negative mammogram in the presence of a clinically suspicious palpableabnormality does not preclude the possibility of malignancy or alter theindications for biopsy. ASSESSMENT: BI-RADS 2: BENIGN RECOMMENDATION(S): 1: Routine screening mammogram RIGHT in 1 year. [facility] [address] [place], [address] -------- FINAL REPORT -------- Dictated By: Greg Oconnell Dictated Date: 01/17/2025 10:47 ET Assigned Physician: Greg Oconnell Reviewed and Electronically Signed By: Greg Oconnell Signed Date: 01/17/2025 13:37 ET Workstation ID: [id number] Transcribed By: Self Edit Transcribed Date: 01/17/2025 10:47 ET us Subrammulu Hanley MD IMG BI PROCEDURES F inal Result * WILIAN DEXA AXIAL SKELETON (04/11/2018 10:22 AM EST) Anatomical Region Laterality Modality Mammography 04/11/2018 9:11 AM EST Narrative 04/11/2018 10:22 AM EST [facility] Diagnostic Imaging Department [address] [place] [address] Patient: BELINDA DAVISON/Age/Sex: 1945 - 73 - F Unit#: [id number] Location/Status: SPDIMAM/REG CLI [facility] Ordering Physician: PONCHO RATLIFF MD Wilian Dexa Axial Skeleton - [...] probability of hip fracture of 2.6%. Code 62926 Dictating Physician: KENTRELL NEWMAN MD Electronically Signed by: KENTRELL NEWMAN MD Dic Date/Time: 04/11/18 1019 Sign date/Time: 04/11/18 1022 Procedure Note Kentrell Newman MD - 02/17/2022 [facility] Diagnostic Imaging Department [address] [place] [id number] Patient: BELINDA DAVISON Ruperto MccannB./Age/Sex: 1945 - 73 - F Unit#: [id number] [facility]Ordering Site: [facility] Ordering Physician: PONCHO RATLIFF MD [facility] Dexa Axial Skeleton - 04/11/18948 HISTORY: The [...] density of the femurs bilaterally is 0.973 gm/ke8gyjsa is 97% of that of young normals [...] probability of hip fracture of 2.6%. Code 75065 Dictating Physician: KENTRELL NEWMAN MD Electronically Signed by: KENTRELL NEWMAN MD Dic Date/Time: 04/11/18 1019 Sign date/Time: 04/11/18 1022 Poncho Ratliff MD IMG BI PROCEDURES Final Res ult from Last 3 Months or Most Recently Relevant to Health Maintenance Insurance [employer] MEDICARE MEDICAID - [place] Care Teams Tiller Man Relationship Specialty Start Date End Date Tamanna Nieves PA [address] [place] [phone] PCP - General Physician Spout Positioner 01/17/25
--- OUTSIDE RECORDS SUMMARY | 2025-02-18 15:50 | XMS_ITS | Clinical Summary ---
Author Organization [facility] Prior to 07/28/[address] [place] [address] Care Team Providers Care Forest Ranger Name Role Phone Yonatan Woody MD Primary Care Provider [phone] Allergies No known active allergies Medications Medication [...] age to complete this topic Care Teams Forest Ranger Relationship Specialty Start Date End Date Yonatan Woody MD [address] [place] [address] [place] [address] PCP - General Internal Medicine 12/15/16
--- OUTSIDE RECORDS SUMMARY | 2025-02-18 15:50 | XMS_ITS | Patient Health Record ---
Author Organization [facility] Address [address] [place] [phone] Care Team Providers Care Environmental Manager Name Role Phone Kyle Ballard [phone] Reason For Referral No Information Plan Of Treatment No Information
--- OUTSIDE RECORDS SUMMARY | 2025-02-18 15:50 | XMS_ITS ---
Author Name [facility] Organization Unknown Allergies Allergen Reaction Severity Comment Documented Date Source Statu s [place] (91) ENS_AONECT Encounters Encounter Type Encounter Reason Primary Diagnosis Location Date Ambulatory [facility] [place] 02/16/2025 Ambulatory [facility] 01/11/2025 Ambulatory [facility] 01/10/2025 Ambulatory [facility] [place] 01/04/2025 Amb[facility] [place] 01/04/2025 Amb[facility] [place] 01/04/2025 Ambulatory [facility] [place] 01/04/2025 Ambulatory [facility] [place] 12/18/2024
--- OUTSIDE RECORDS SUMMARY | 2025-02-18 15:50 | XMS_ITS | Patient Health Record ---
Author Organization [facility] Address [address] [place] [address] Care Team Providers Care Stove Cleaner Name Role Phone Tamanna Teixeira Primary Care Provider Norma Salazar Unavailable [phone] Allergies No Known Allergies Reason For Referral [...] Osteoarthritis of midtarsal joint of left foot ([id number] ) Osteoarthritis of midtarsal joint of left foot (M19.072) Active confirmed Problem Osteoarthritis of midtarsal joint of right foot ([id number] ) Osteoarthritis of midtarsal joint of right foot (M19.071) Active confirmed Vital Signs Heart Rate 74 /min 10/04/2024 Blood pressure diastolic 77 R mm Hg 10/04/2024 Height 5 ft 7 in in 10/04/2024 Blood pressure systolic 132 mm Hg 10/04/2024 Weight 186 lbs 10/04/2024 BMI 29.13 kg/m2 10/04/2024 Encounters Encounter Location Date Provider Diagnosis [address] [address] 08/27/2024 Norma Polk Pain in left foot [...] M25.571 and Bursitis of right foot M77.[address] [address] 10/04/2024 Norma Polk Osteoarthritis of midtarsal joint of right foot M19.071 ; Osteoarthritis of midtarsal joint of left foot M19.072 and Tinea unguium B35.1 [facility] [address] [place] [address] 06/20/2024 Norma Polk Assessments Encounter Date Diagnosis [...] Date Coverage End Date [employer] Medicare [id number] [address] [address] [place] [address] [id number] Belinda Mcneil Self - patient is the insured Medical (General) History Medical History History ICD Code Anxiety Arthritis Back,Hip,and Knee pain Cancer Depression High Blood Pressure Numbness Psoriasis/eczema Measles Mumps Chicken pox COPD Surgical History Surgery Date(Month/Year) 09/17/79,06/07/86 hysterectomy 1992 left mastectomy 2009 lumpectomy 03/24/23
== END 2025-02-18 13:36 | disposition home or self-care (01) ==
LOC: HO.HMCHD 12:42
PROVIDERS: PCP Student in an Organized Health Care Education/Training Program; Visit Provider Physician Assistant
DX: I10 Essential (primary) hypertension (principal); K21.9 Gastro-esophageal reflux disease without esophagitis; R51.9 Headache, unspecified; J44.9 Chronic obstructive pulmonary disease, unspecified; M54.2 Cervicalgia; D05.02 Lobular carcinoma in situ of left breast; L40.9 Psoriasis, unspecified

== ENCOUNTER 2025-02-18 12:41 | Outpatient (REF) | payer MEDICARE, SELFPAY ==
[2025-02-18 15:32] LABS: Alanine Aminotransferase 19 U/L (0-31); Albumin Level 4.3 g/dL (3.5-5.0); Alkaline Phosphatase 59 U/L (39-117); Anion Gap 11 (12-20); Aspartate Amino Transferase 29 U/L (5-31); Blood Urea Nitrogen 15 mg/dL (9-16); Calcium 9.5 mg/dL (8.4-10.2); Carbon Dioxide 30 mmol/L (22-29); Chloride 108 mmol/L (96-108); Cholesterol 207 mg/dL (<200); Estimated Glomerular Filt Rate > 60; HDL Cholesterol 75 mg/dL (>40); Potassium 4.7 mmol/L (3.3-5.1); Sodium 144 mmol/L (135-145); Total Protein 6.9 g/dL (6.5-8.0); Triglycerides 89 mg/dL (<150)
== END 2025-02-18 12:42 | disposition home or self-care (01) ==
LOC: HO.LAB 12:41
PROVIDERS: PCP Student in an Organized Health Care Education/Training Program; Visit Provider Physician Assistant
DX: I10 Essential (primary) hypertension (principal); K21.9 Gastro-esophageal reflux disease without esophagitis; J44.9 Chronic obstructive pulmonary disease, unspecified; F32.9 Major depressive disorder, single episode, unspecified; R51.9 Headache, unspecified; M54.2 Cervicalgia; D05.02 Lobular carcinoma in situ of left breast; L40.9 Psoriasis, unspecified; Z79.51 Long term (current) use of inhaled steroids; Z13.1 Encounter for screening for diabetes mellitus
CPT/HCPCS: 36415; 80048; 80061; 80076; 83036; 99212